=== PATIENT | male | born 1955 | race Caucasian/White ===

== ENCOUNTER 2019-07-07 06:53 | Day surgery (SDC) | payer SELFPAY ==
[~2019-07-07] VITALS: Ht 193 cm; Wt 117.9 kg
--- OUTSIDE RECORDS SUMMARY | ~2019-07-07 | XMS | Encounter Summary ---
Demographics + + + | Address | [address] | | | [place] [address] | + + + | Home Phone | | + + + | Preferred Language | Unknown | + + + | Marital Status | | + + + | Protestant Affiliation | Unknown | + + + | Race | Unknown | + + + | Ethnic Group | Unknown | + + + Author + + + | Author | [facility] | | | and [place] | + + + | Organization | [facility] | | | and [place] | + + + | Address | Unknown | + + + | Phone | Unavailable | + + + Support + + + + + | Name | Relationship | Address | Phone | + + + + + | Alli Keller | ECON | Unknown | | + + + + + | Imelda Keller | ECON | [address] | | | | | [place] [address] | | + + + + + Care Team Providers + +------+ + | Care Outside Sales Representative Insurance Name | Role | Phone | + +------+ + PCP | Unavailable | + +------+ + Encounter Details +--------+ + + + + | Date | Type | Department | Care Team | Description | +--------+ + + + + | 07/15/ | Hospital | [facility] | | | | 2008 | Encounter | [facility] | | | | | | [address] | | | | | | [place] | | | | | | [address] | | | | | | [phone] | | | +--------+ + + + + Social History + +-------+ +--------+------+ | Tobacco Use | Types | Packs/Day | Years | Date | | | | | Used | | + +-------+ +--------+------+ | Never Assessed | | | | | + +-------+ +--------+------+ + + + | Sex Assigned at | Date Recorded | | | | + + + | Not on file | | + + + + + + + | Job Start Date | Occupation | Industry | + + + + | Not on file | Not on file | Not on file | + + + + + + + + | Travel History | Travel Start | Travel End | + + + + + + | No recent travel history available. | + + documented as of this encounter Plan of Treatment Not on filedocumented as of this encounter Visit Diagnoses Not on filedocumented in this encounter"
--- OUTSIDE RECORDS SUMMARY | ~2019-07-07 | XMS | Encounter Summary ---
Demographics + + + | Address | [address] | | | [place] [address] | + + + | Home Phone | | + + + | Preferred Language | Unknown | + + + | Marital Status | | + + + | Jainism Affiliation | Unknown | + + + | Race | Unknown | + + + | Ethnic Group | Unknown | + + + Author + + + | Author | [facility] | | | and [place] | + + + | Organization | [facility] | | | and [...] [address] | | | | | [place] [address] | | + + + + + Care Team Providers + +------+ + | Care Minister Of Religion Name | Role | Phone | + +------+ + | No, Physician | PCP | Unavailable | + +------+ + Reason for Visit Auth/Cert +--------+--------+ + + + + | Status | Reason | Specialty | Diagnoses / | Referred By | Referred To | | | | | Procedures | Contact | Contact | +--------+--------+ + + + + | | | | Diagnoses | | | | | | | Spondylosis | | | | | | | without | | | | | | | myelopathy | | | | | | | or | | | | | | | radiculopath | | | | | | | y, lumbar | | | | | | | region | | | | | | | Flatback | | | | | | | syndrome, | | | | | | | site | | | | | | | unspecified | | | | | | | Low back | | | | | | | pain Back | | | | | | | pain or | | | | | | | radiculopath | | | | | | | y, > 6 wks | | | | | | | | | | | | | | Procedures | | | | | | | LUMBAR SPINE | | | | | | | MRI UNDER | | | | | | | GENERAL | | | | | | | SEDATION | | | +--------+--------+ + + + + Encounter Details +--------+---------+ + + + | Date | Type | Department | Care Team | Description | +--------+---------+ + + + | 02/07/ | Surgery | [facility] | Duy Huerta | LUMBAR SPINE MRI | | 2019 | | [facility] | MD Jose Roberto [address] | UNDER GENERAL | | | | [address] [place] | SEDATION | | | | [place], [place] | [place] [address] | | | | | [address] | [phone] | | | | | [phone] | | | +--------+---------+ + + + Social History + +-------+ +--------+------+ | Tobacco Use | Types | Packs/Day | Years | Date | | | | | Used | | + +-------+ +--------+------+ | Never Smoker | | | | | + +-------+ +--------+------+ + +---+---+---+ | Smokeless Tobacco: | | | | | Never Used | | | | + +---+---+---+ + + +---------+ + | Alcohol Use | Drinks/Week | oz/Week | Comments | + + +---------+ + | Yes | 6 Cans of beer | 6.0 | | + + +---------+ + + + + + | Alcohol Habits | Answer | Date Recorded | + + + + | How often do you have a drink containing | 4 or more times a week | 01/28/2019 | | alcohol? | | | + + + + | How many drinks containing alcohol do you | 1 or 2 | 01/28/2019 | | have on a typical day when you are | | | | drinking? | | | + + + + | How often do you have six or more drinks on | Never | 01/28/2019 | | one occasion? | | | + + + + + + + | Sex Assigned at [...] + + documented as of this encounter Last Filed Vital Signs + + + + + | Vital Sign | Reading | Time Taken | Comments | + + + + + | Blood Pressure | 134/84 | 02/07/2019 11:25 AM | | | | | PST | | + + + + + | Pulse | 76 | 02/07/2019 11:26 AM | | | | | PST | | + + + + + | Temperature | 36.6 C (97.9 F) | 02/07/2019 11:15 AM | | | | | PST | | + + + + + | Respiratory Rate | 16 | 02/07/2019 11:26 AM | | | | | PST | | + + + + + | Oxygen Saturation | 99% | 02/07/2019 11:26 AM | | | | | PST | | + + + + + | Inhaled Oxygen | - | - | | | Concentration | | | | + + + + + | Weight | 117.5 kg (259 lb 0.7 | 02/07/2019 10:02 AM | | | | oz) | PST | | + + + + + | Height | 193 cm (6' 4") | 02/07/2019 10:02 AM | | | | | PST | | + + + + + | Body Mass Index | 31.53 | 02/07/2019 10:02 AM | | | | | PST | | + + + + + documented in this encounter Discharge Instructions Instructions Renetta Estrada RN - 02/07/2019 Recovery After Procedural Sedation (Adult) You have been given medicine by vein to make you sleep during your procedure. This may have included both a pain medicine and sleeping medicine. Most of the effects have worn off. But you may still have some drowsiness for the next 6 to 8 hours. Home care Follow these guidelines when you get home: For the next 8 hours, you should be watched by a responsible adult. This person should m terrie sure your condition is not getting worse. Don't drink any alcoholfor the next [address], operate dangerous machinery,make important business or personal decisions , or sign legal documentsduring the next 24 hours. Note: Your healthcare provider may tell you not to take any medicine by mouth for pain or s leep in the next 4 hours. These medicines may react with the medicines you were given in the hospital. This could cause a much stronger response than usual. Follow-up care Follow up with your healthcare provider if you are not alert and back to your usual level o f activity within 12 hours. When to seek medical advice Call your healthcare provider right away if any of these occur: Drowsiness gets worse Weakness or dizziness gets worse Repeated vomiting You can't be awakened Date Last Reviewed: 12/07/201519990174-5259 [employer]. [address] [place] [address], [place] [id number]. All righ ts reserved. This information is not intended as a substitute for professional medical care. Always follow your healthcare professional's instructions. documented in this encounter Medications at Time of Discharge + + + +---------+ + + | Medication | Sig | Dispensed | Refills | Start | End Date | | | | | | Date | | + + + +---------+ + + | ibuprofen (ADVIL, | Take 1,000 mg by | | 0 | | | | MOTRIN) 200 mg | mouth 4 times daily | | | | | | tablet | as needed for Pain. | | | | | + + + +---------+ + + | gabapentin | Take 1 capsule by | 90 | 1 | 12/10/20 | | | (NEURONTIN) 300 mg | mouth 3 times daily. | capsule | | 19 | 0 | | capsuleIndications: | | | | | | | Lumbar spondylosis, | | | | | | | Flat back syndrome, | | | | | | | Low back pain | | | | | | | potentially | | | | | | | associated with | | | | | | | radiculopathy | | | | | | + + + +---------+ + + documented as of this encounter Plan of Treatment Not on filedocumented as of this encounter Procedures + +--------+ + + + | Procedure Name | Priori | Date/Time | Associated Diagnosis | Comments | | | ty | | | | + +--------+ + + + | MRI LUMBAR SPINE WO | Routin | 02/07/2019 | Lumbar spondylosis | Results for this | | CONTRAST | e | 11:00 AM | Flat back syndrome | procedure are in the | | | | PST | Low back pain | results section. | | | | | potentially | | | | | | associated with | | | | | | radiculopathy | | + +--------+ + + + | DI: MRI | | 02/07/2019 | Back pain or | | | | | 10:34 AM | radiculopathy, > 6 | | | | | PST | wks | | + +--------+ + + + +---+--------+ | | Case | | | Notes | | | H&P | | | 01/28 | | | by | | | Suchar | | | da | +---+--------+ | | | | | Specia | | | l | | | Needs | | | PT | | | CHECKI | | | NG IN | | | @ 1100 | +---+--------+ documented in this encounter Results MRI Lumbar Spine wo Contrast (02/07/2019 11:00 AM PST) + + | Specimen | + + | | + + + + + | Impressions | Performed At | + + + | 1. DEGENERATIVE DISC DISEASE AND PROMINENT LEFT PARAMEDIAN DISC | [facility] | | EXTRUSION AT L4-5 WITH EFFACEMENT OF THE LEFT SUBARTICULAR RECESS, | | | MODERATE OVERALL CENTRAL CANAL STENOSIS AND ENCROACHMENT ON THE | | | DESCENDING LEFT-SIDED NERVE ROOTS. 2. DEGENERATIVE DISC DISEASE | | | AND MILD TO MODERATE FORAMINAL STENOSIS AT L5-S1 WITH ENCROACHMENT ON | | | THE EXITING L5 NERVE ROOTS. 3. DEGENERATIVE DISC DISEASE AND | | | MILD STENOSIS ELSEWHERE IN THE LUMBAR SPINE DETAILED ABOVE. | | | Dictated and Signed by: Qamar Estevez MD Electronically signed: | | | 02/07/2019 12:33 PM | | + + + + + + | Narrative | Performed At | + + + | UNENHANCED MRI LUMBAR SPINE 02/07/2019 10:30 AM CLINICAL | [facility] | | HISTORY: Back pain or radiculopathy, > 6 wks COMPARISON: | | | Radiographs November 05 TECHNIQUE: The following MR | | | sequences of the lumbar spine were obtained: 1. Axial and sagittal | | | T1. 2. Axial, sagittal, and coronal T2. 3. Sagittal STIR. | | | FINDINGS: Five non rib-bearing, lumbar type vertebrae are suggested on | | | the coronal sequence. Marrow signal is normal. Lumbar vertebral | | | height and alignment are maintained without evident fracture, | | | spondylolysis or spondylolisthesis. The conus medullaris is | | | unremarkable, terminating at L1. A circumaortic left renal vein is | | | noted. Imaged intra-abdominal and paraspinal structures are | | | otherwise unremarkable. The T11-12 level is unremarkable on | | | provided sagittal images through the region. T12-L1: No disc | | | pathology or stenosis. L1-2: Disc desiccation, annular tear and | | | mild posterior disc bulge without stenosis. A small right facet | | | joint effusion is present. L2-3: Disc desiccation, annular tears | | | and mild posterior disc bulge combine with facet hypertrophy to | | | minimally narrow the central canal and foramina. There is minimal | | | facet joint fluid. L3-4: Minimal posterior disc bulge and facet | | | hypertrophy without stenosis. Small facet joint effusions are | | | present. L4-5: Disc desiccation, generalized posterior disc bulge | | | and prominent left paramedian disc extrusion, resulting in effacement | | | of the left subarticular recess and moderate narrowing of the | | | central canal overall. There is mass effect on descending | | | left-sided nerve roots. In combination with facet hypertrophy there | | | is mild to moderate bilateral foraminal stenosis. L5-S1: Disc | | | desiccation, moderate to severe disc space narrowing, mild Modic | | | endplate hyperintensity and mild, generalized disc osteophyte complex | | | result in mild to moderate narrowing of the foramina and encroachment | | | on the exiting L5 nerve roots distal to their foramina. There is | | | minimal facet joint fluid. | | + + + + + | Procedure Note | + + | Lalit, Rad Results In - 02/07/2019 12:36 PM PST UNENHANCED MRI LUMBAR SPINE 02/07/2019 | | 10:30 AMCLINICAL HISTORY: Back pain or radiculopathy, > 6 wks COMPARISON: Radiographs | | November 05TECHNIQUE: The following MR sequences of the lumbar spine were | | obtained:1. Axial and sagittal T1.2. Axial, sagittal, and coronal T2.3. Sagittal | | STIR.FINDINGS: Five non rib-bearing, lumbar type vertebrae are suggested on thecoronal | | sequence. Marrow signal is normal. Lumbar vertebral height andalignment are maintained | | without evident fracture, spondylolysis orspondylolisthesis. The conus medullaris is | | unremarkable, terminating at L1. Acircumaortic left renal vein is noted. Imaged | | intra-abdominal and paraspinalstructures are otherwise unremarkable.The T11-12 level is | | unremarkable on provided sagittal images through the region.T12-L1: No disc pathology or | | stenosis.L1-2: Disc desiccation, annular tear and mild posterior disc bulge | | withoutstenosis. A small right facet joint effusion is present.L2-3: Disc desiccation, | | annular tears and mild posterior disc bulge combine withfacet hypertrophy to minimally | | narrow the central canal and foramina. There isminimal facet joint fluid.L3-4: Minimal | | posterior disc bulge and facet hypertrophy without stenosis. Small facet joint effusions | | are present.L4-5: Disc desiccation, generalized posterior disc bulge and prominent | | leftparamedian disc extrusion, resulting in effacement of the left subarticularrecess | | and moderate narrowing of the central canal overall. There is masseffect on descending | | left-sided nerve roots. In combination with facethypertrophy there is mild to moderate | | bilateral foraminal stenosis.L5-S1: Disc desiccation, moderate to severe disc space | | narrowing, mild Modicendplate hyperintensity and mild, generalized disc osteophyte | | complex result inmild to moderate narrowing of the foramina and encroachment on the | | exiting [id number] roots distal to their foramina. There is minimal facet joint | | fluid.IMPRESSION: 1. DEGENERATIVE DISC DISEASE AND PROMINENT LEFT PARAMEDIAN DISC | | EXTRUSION ATL4-5 WITH EFFACEMENT OF THE LEFT SUBARTICULAR RECESS, MODERATE OVERALL | | CENTRALCANAL STENOSIS AND ENCROACHMENT ON THE DESCENDING LEFT-SIDED NERVE ROOTS.2. | | DEGENERATIVE DISC DISEASE AND MILD TO MODERATE FORAMINAL STENOSIS AT L5-S1WITH | | ENCROACHMENT ON THE EXITING L5 NERVE ROOTS.3. DEGENERATIVE DISC DISEASE AND MILD | | STENOSIS ELSEWHERE IN THE LUMBAR SPINE ASDETAILED ABOVE.Dictated and Signed by: Qamar | | MD Herb Electronically signed: 02/07/2019 12:33 PM | |Small facet joint effusions are present. | | | |L4-5: Disc desiccation, generalized posterior disc bulge and prominent left | |paramedian disc extrusion, resulting in effacement of the left subarticular | |recess and moderate narrowing of the central canal overall. There is mass | |effect on descending left-sided nerve roots. In combination with facet | |hypertrophy there is mild to moderate bilateral foraminal stenosis. | | | |L5-S1: Disc desiccation, moderate to severe disc space narrowing, mild Modic | |endplate hyperintensity and mild, generalized disc osteophyte complex result in | |mild to moderate narrowing of the foramina and encroachment on the exiting L5 | |nerve roots distal to their foramina. There is minimal facet joint fluid. | | | |IMPRESSION: | |1. DEGENERATIVE DISC DISEASE AND PROMINENT LEFT PARAMEDIAN DISC EXTRUSION AT | |L4-5 WITH EFFACEMENT OF THE LEFT SUBARTICULAR RECESS, MODERATE OVERALL CENTRAL | |CANAL STENOSIS AND ENCROACHMENT ON THE DESCENDING LEFT-SIDED NERVE ROOTS. | | | |2. DEGENERATIVE DISC DISEASE AND MILD TO MODERATE FORAMINAL STENOSIS AT L5-S1 | |WITH ENCROACHMENT ON THE EXITING L5 NERVE ROOTS. | | | |3. DEGENERATIVE DISC DISEASE AND MILD STENOSIS ELSEWHERE IN THE LUMBAR SPINE | |DETAILED ABOVE. | | | |Dictated and Signed by: Qamar Estevez MD | | Electronically signed: 02/07/2019 12:33 PM | + + + +---------+ + + | Performing | Address | City[facility]State[facility] | Phone Number | | Organization | | | | + +---------+ + + | [facility] | | | | + +---------+ + + documented in this encounter Visit Diagnoses Not on filedocumented in this encounter Administered Medications + +--------+---------+------+------+------+ | Medication Order | MAR | Action | Dose | Rate | Site | | | Action | Date | | | | + +--------+---------+------+------+------+ + +---+ | albuterol 2.5 mg/3 mL nebulizer | | | solution 2.5 mg 2.5 mg, | | | Nebulization, ONCE PRN, Wheezing, | | | Starting Sun02/07/19 at 1024, | | | For 1 dose, RT will administer., | | | Pre-op | | + +---+ | | | + +---+ | albuterol 2.5 mg/3 mL nebulizer | | | solution 2.5 mg 2.5 mg, | | | Nebulization, ONCE PRN, Wheezing, | | | Starting Sun02/07/19 at 1107, | | | For 1 dose, Notify anesthesia if | | | patient is wheezing and does not | | | have a history of asthma or COPD | | | or current smoking., | | | Recovery/Phase I | | + +---+ | | | + +---+ | dextrose 50% injection 12.5-25 | | | g 12.5-25 g, Intravenous, EVERY | | | 15 MIN PRN, Low Blood Sugar, Give | | | 12.5g (25 mL) IV if blood | | | glucose 50-69 mg/dL. Give 25g | | | (50 mL) IV if blood glucose < 50, | | | Starting 02/07/19 at 1024, | | | Repeat in 15 min if blood glucose | | | remains < 70 mg/dL. Repeat | | | blood glucose in 30 min once | | | blood glucose > 70., Pre-op | | + +---+ | | | + +---+ | dextrose 50% injection 12.5-25 | | | g 12.5-25 g, Intravenous, EVERY | | | 15 MIN PRN, Low Blood Sugar, For | | | hypoglycemia. Give 12.5g (25ml) | | | IV if blood glucose 50-69 | | | mg/dL. Give 25g (50ml) IV if | | | blood glucose < 50, Starting Fri | | | 02/07/19 at 1107, Give over 2 | | | min. Repeat in 15 min if blood | | | glucose remains < 70 mg/dL. | | | Repeat blood glucose in 30 min | | | once blood glucose > 70., | | | Recovery/Phase I | | + +---+ | | | + +---+ | ePHEDrine (AKOVAZ) 50 mg/mL | | | injection 5 mg 5 mg, | | | Intravenous, EVERY 5 MIN PRN, if | | | SBP <90., Starting 02/07/19 | | | at 1107, Hold if HR > 100. | | | Maximum total dose 20mg., | | | Recovery/Phase I | | + +---+ | | | + +---+ | fentaNYL (PF) injection 25-50 | | | mcg 25-50 mcg, Intravenous, | | | EVERY 15 MIN PRN, Pain, Give on | | | direction of physician, Starting | | | Sun02/07/19 at 1024, For 4 | | | doses, Max total dose 100 mcg., | | | Pre-op | | + +---+ | | | + +---+ | hydrALAZINE (APRESOLINE) | | | injection 5 mg 5 mg, | | | Intravenous, EVERY 20 MINUTES | | | PRN, For SBP > 180, DBP > 100, | | | Starting Sun02/07/19 at 1107, | | | Hold if HR > 100. Maximum total | | | dose 40 mg. Use labetalol first | | | if available., Recovery/Phase I | | + +---+ | | | + +---+ | labetalol (TRANDATE) 5 mg/mL | | | injection 5 mg 5 mg, | | | Intravenous, EVERY 5 MIN PRN, For | | | SBP > 180, DBP > 100, Starting | | | Sun02/07/19 at 1107, Hold if HR | | | < 60. Maximum total dose 300mg. | | | Notify anesthesia if patient | | | requires more than 50mg., | | | Recovery/Phase I | | + +---+ | | | + +---+ | lactated ringers (LR) infusion | | | at 10-100 mL/hr, Intravenous, | | | CONTINUOUS, Starting Sun02/07/19 | | | at 1045, TKO., Pre-op | | + +---+ | | | + +---+ + +---------+ +--------+-------+---+ | lactated ringers (LR) infusion | New Bag | 02/08/20 | 1,000 | 100 | | | Intravenous, CONTINUOUS PRN, | | 19 10:31 | mLs | mL/hr | | | Starting Sun02/07/19 at 0926, | | AM PST | | | | | Anesthesia Intra-op | | | | | | + +---------+ +--------+-------+---+ + +---+ | | | + +---+ | meperidine (DEMEROL) injection | | | 12.5-25 mg 12.5-25 mg, | | | Intravenous, PRN, Shivering, | | | Starting Sun02/07/19 at 1107, | | | For 2 doses, May Repeat once in 5 | | | min., Recovery/Phase I | | + +---+ | | | + +---+ | midazolam (VERSED) 1 mg/mL | | | injection 1 mg 1 mg, | | | Intravenous, PRN, Anxiety, May | | | repeat Q 5 minutes prn, Starting | | | Sun02/07/19 at 1024, For 2 | | | doses, May repeat once in 5min. | | | Hold anxiolytic until after | | | anesthesia and surgical consent | | | is obtained, Pre-op | | + +---+ | | | + +---+ | ondansetron (ZOFRAN) injection | | | 4 mg 4 mg, Intravenous, ONCE | | | PRN, Nausea, Starting Fri | | | 02/07/19 at 1024, For 1 dose, | | | Pre-op | | + +---+ | | | + +---+ | ondansetron (ZOFRAN) injection | | | 4 mg 4 mg, Intravenous, ONCE | | | PRN, Nausea, Starting Fri | | | 02/07/19 at 1107, For 1 dose, | | | Recovery/Phase I | | + +---+ | | | + +---+ | promethazine (PHENERGAN) (IV | | | ONLY) injection 6.25 mg 6.25 mg, | | | Intravenous, EVERY 15 MIN PRN, | | | Nausea, Vomiting, Starting Fri | | | 02/07/19 at 1107, For 4 doses, | | | TAKE PRECAUTIONS WHEN | | | ADMINISTERING Dilute to 10-20mL | | | with NS. Give over 2-3 minutes | | | into large vein. Use ondansetron | | | first if both are ordered., | | | Recovery/Phase I | | + +---+ | | | + +---+ documented in this encounter
--- OUTSIDE RECORDS SUMMARY | ~2019-07-07 | XMS | Encounter Summary ---
Demographics + + + | Address | [address] | | | [place] [address] | + + + | Home Phone | | + + + | Preferred Language | Unknown | + + + | Marital Status | | + + + | Shinto Affiliation | Unknown | + + + | Race | Unknown | + + + | Ethnic Group | Unknown | + + + Author + + + | Author | [facility] | | | and [place] | + + + | Organization | [facility] | | | [...] | | | | | [place] [address] | | + + + + + Care Team Providers + +------+ + | Care Gasoline Engine Assembler Name | Role | Phone | + +------+ + | No, Physician | PCP | Unavailable | + +------+ + Reason for Visit + + + | Reason | Comments | + + + | Follow-up | MRI Results | + + + | Back Pain | | + + + Evaluate & Treat (Routine) + +--------+ + + + + | Status | Reason | Specialty | Diagnoses / | Referred By | Referred To | | | | | Procedures | Contact | Contact | + +--------+ + + + + | Authorized | | Neurosurgery | Diagnoses | Eric, | [facility] | | | | | Lumbosacral | Mehrdad Olson DC | Neurosurgery | | | | | strain | [address] [facility] | [address] | [address] | | | | [address] | [address] | | | | | | [address] | [place], | | | | | | [place], | [place] [address] | | | | | | [place] | Phone: | | | | | | [address] | [phone] | | | | | | Phone: | Fax: | | | | | | [phone] | [phone] | | | | | | Fax: | | | | | | | [phone] | | + +--------+ + + + + Encounter Details +--------+---------+ + + + | Date | Type | Department | Care Team | Description | +--------+---------+ + + + | 02/26/ | Office | [facility] | Michael Carolina, | Stenosis of lateral | | 2019 | Visit | NEUROSURGERY [address] | PA-C [address] | recess of lumbar | | | | [address] | [address] [place] | spine (Primary Dx); | | | | [place] | [place] [address] | Lumbar spondylosis; | | | | [address] | [phone] | Flat back syndrome; | | | | [phone] | | Low back pain | | | | | | potentially | | | | | | associated with | | | | | | radiculopathy; | | | | | | Lumbar foraminal | | | | | | stenosis | +--------+---------+ + + + Social History + +-------+ +--------+------+ | Tobacco Use | Types | Packs/Day | Years | Date | | | | | Used | | + +-------+ +--------+------+ | Never Smoker | | | | | + +-------+ +--------+------+ + +---+---+---+ | Smokeless Tobacco: | | | | | Never Used | | | | + +---+---+---+ + + + + + | Alcohol Use | Drinks/Week | oz/Week | Comments | + + + + + | Yes | 6-10 Cans of beer | 6.0 - 10.0 | | + + + + + + + + + | Alcohol [...] + + + | Blood Pressure | 172/84 | 02/26/2019 2:16 PM | | | | | PST | | + + + + + | Pulse | 79 | 02/26/2019 2:16 PM | | | | | PST | | + + + + + | Temperature | - | - | | + + + + + | Respiratory Rate | 17 | 02/26/2019 2:16 PM | | | | | PST | | + + + + + | Oxygen Saturation | 97% | 02/26/2019 2:16 PM | | | | | PST | | + + + + + | Inhaled Oxygen | - | - | | | Concentration | | | | + + + + + | Weight | 117.2 kg (258 lb 4.8 | 02/26/2019 2:16 PM | | | | oz) | PST | | + + + + + | Height | 193 cm (6' 4") | 02/26/2019 2:16 PM | | | | | PST | | + + + + + | Body Mass Index | 31.44 | 02/26/2019 2:16 PM | | | | | PST | | + + + + + documented in this encounter Patient Instructions Patient Instructions Sindhu Reynoso Cert MA - 02/26/2019 1:30 PM PST - Before we can proceed with any surgery, you will need to get clearance from a primary car e provider. Please work on establishing care with a provider that can do this evaluation fo r you. Please call our office to schedule an appointment with one of our Neurosurgeon's onc e this has been done. - I would like you to have a Left L4-5 TFESI (injection) with Dr. Wolff. We will send that referral and ask that they call you to schedule the injection. - Let pain be your guide. If you are doing an activity that starts causing you pain back o ff and ease back into it slowly. We don't want you taking any risks that do not need to be taken. documented in this encounter Progress Notes Michael Carolina PA-C - 02/26/2019 1:30 PM PST Michael Carolina PA-C [address] [facility], [address] [place], [place] [address] FAX: [phone] NEUROSURGERY FOLLOW-UP CHIEF COMPLAINT: Chief Complaint Patient presents with Follow-up MRI Results Back Pain HISTORY OF PRESENT ILLNESS: The patient is a 63 y.o. male that presents for a follow up on back and leg symptoms. He was last seen on 01/28/2019 with the complaints of back pain and left leg symptoms that began 4 months ago. It was recommended that he have an MRI of the l umbar spine and return to discuss results. Today he complains of continued left leg pain. He was prescribed gabapentin by me the last time we saw him and says that he increased his Gabapentin from 300mg three times a day to 3 00mg four times a day which seems to help better than the standard instructions I gave him. CURRENT MEDICATIONS: Current Outpatient Medications Medication Sig Dispense Refill gabapentin (NEURONTIN) 300 mg capsule Take 1 capsule by mouth 4 times daily. 120 capsul e 2 ibuprofen (ADVIL, MOTRIN) 200 mg tablet Take 1,000 mg by mouth 4 times daily as needed for Pain. No current facility-administered medications for this visit. ALLERGIES: Allergies Allergen Reactions Penicillins Rash SOCIAL HISTORY: The patient reports that he has never smoked. He has never used smokeless tobacco. He repo rts current alcohol use of about 6.0 - 10.0 standard drinks of alcohol per week. He reports previous drug use. Drug: Marijuana. Review of Systems Eyes: Positive for blurred vision (glasses). Musculoskeletal: Positive for back pain, joint pain (left knee and ankle) and myalgias. Neurological: Positive for tingling (top of left foot). INTERIM PHYSICAL EXAMINATION: Blood pressure 172/84, pulse 79, resp. rate 17, height 1.93 m (6' 4"), weight 117.2 kg (258 lb 4.8 oz), SpO2 97 %. Body mass index is 31.44 kg/m. GENERAL: Rafael Keller is in no acute distress with unlabored respirations. The pa tient does appear comfortable throughout the exam today. HEENT: Head: Normocephalic/atraumatic with no areas of recent trauma. Eyes: Normal sclerae without icterus. Ears: No drainage or tenderness. Nasopharnyx: Clear without drainage. Oropharnyx: Clear without erythema. NECK (ANTERIOR): Supple and without palpable masses. CHEST: Clear to ausculation without crackles or wheeze. HEART: Regular rate and rhythm without murmurs. ABDOMEN: Soft, non-tender, non-distended, and without palpable masses. EXTREMITIES: No cyanosis, clubbing, or edema. Distal pulses are palpable. NEUROLOGICAL EXAM: MENTAL STATUS: The patient is awake, alert, and oriented. He follows simple and complex commands. His speech is fluent, he comprehends speech well, and he repeats well. He has no apparent deficits with short or adjunct faculty for medical terminology memory. CRANIAL NERVES: II: Acuity is intact. Aleman are full to confrontation. III, IV, : The pupils are reactive. Extraocular movements are intact. No ptosis is note d. V: Facial sensation is intact and symmetric. VII: Facial movements are symmetric. VIII: Hearing is intact bilaterally. IX, X: The uvula and palate move appropriately. XI: Shrug is equal bilaterally. XII: Tongue protrusion is midline. MOTOR EXAM: (5 IS NORMAL) * Indicates pain limited Motor exam is normal. Ful 5/5 strength in both lower extremities. SENSORY EXAM: Sensory exam shows diminished sensation to left lateral calf. GAIT: Gait is steady TEST AND RADIOGRAPHIC REVIEW: The patient's imaging was reviewed in detail with the patient today during the visit. The Lumbar MRI from 02/07/2019 shows severe lateral recess stenosis on the left at L4-L5 seconda ry to a very large disc bulge/rupture. Part of this disc rupture appears to have calcificat ions and may be quite old. Lumbar x-rays from 11/05/2018 show significant loss of disc height at L5-S1 with near bone- on-bone articulation.. ASSESSMENT: Encounter Diagnoses Name Primary? 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 The patient has severe left lateral recess stenosis causing L5 radiculopathy in the graciela ing nerve.. We had a lengthy discussion with the patient about his options for care including surgical and non-surgical options. He does not have a current primary care provider so I have recom mended that he get established with one prior to us seeing him and discussing surgery option s with a surgeon. He understands that he needs to have primary care provider clearance prio r to any surgery taking place. I have suggested he get an injection with Dr. Wolff in the meantime to see if that will help alleviate some of his back and leg symptoms. I have s ent a referral for a left L4-[address] Wolff's office. I, Michael Carolina PA-C, personally performed the services described in this documentati on, as scribed by LISA Youssef in my presence, and it is both accurate and complete. Michael Carolina PA-C 02/27/19 ELECTRONICALLY SIGNED BY: Michael Carolina PA-C, 02/27/2019 2:02 PM documented in thi s encounter Plan of Treatment Not on filedocumented as of this encounter Visit Diagnoses + + | Diagnosis | + + | Stenosis of lateral recess of lumbar spine - Primary Spinal stenosis, lumbar region, | | without neurogenic claudication | + + | Lumbar spondylosis Lumbosacral spondylosis without myelopathy | + + | Flat back syndrome Other lordosis (acquired) | + + | Low back pain potentially associated with radiculopathy | + + | Lumbar foraminal stenosis Spinal stenosis, lumbar region, without neurogenic | | claudication | + + documented in this encounter
--- OUTSIDE RECORDS SUMMARY | ~2019-07-07 | XMS | Clinical Summary ---
Demographics + + + | Address | [address] | | | [place] [address] | + + + | Home Phone | | + + + | Preferred Language | Unknown | + + + | Marital Status | | + + + | Mormon Affiliation | Unknown | + + + | Race | Unknown | + + + | Ethnic Group | Unknown | + + + Author + + + | Author | [facility] | | | and [place] | + + + | Organization | [facility] | | | [...] | | | | | [place] [address] | | + + + + + Care Team Providers + +------+ + | Care Barrel Bander Name | Role | Phone | + +------+ + | Ermias Campo | PCP | | + +------+ + Allergies + + + +--------+ + | Active Allergy | Reactions | Severity | Noted | Comments | | | | | Date | | + + + +--------+ + | Penicillins | Rash | Low | | | + + + +--------+ + Medications + + + +---------+------+------+-------+ | Medication | Sig | Dispensed | Refills | Star | End | Statu | | | | | | t | Date | s | | | | | | Date | | | + + + +---------+------+------+-------+ | ibuprofen (ADVIL, | Take 1,000 mg by | | 0 | | | Activ | | MOTRIN) 200 mg | mouth 4 times daily | | | | | e | | tablet | as needed for Pain. | | | | | | + + + +---------+------+------+-------+ | gabapentin | Take 1 capsule by | 120 | 1 | 04/2 | | Activ | | (NEURONTIN) 300 mg | mouth 4 times daily. | capsule | | 9/20 | | e | | capsuleIndications: | | | | 20 | | | | Lumbar spondylosis, | | | | | | | | Flat back syndrome, | | | | | | | | Low back pain | | | | | | | | potentially | | | | | | | | associated with | | | | | | | | radiculopathy | | | | | | | + + + +---------+------+------+-------+ | gabapentin | Take 1 capsule by | 120 | 2 | 01/0 | 04/ | Disco | | (NEURONTIN) 300 mg | mouth 4 times daily. | capsule | | 10/08 | 11/08 | ntinu | | capsuleIndications: | | | | 20 | 20 | ed | | Lumbar spondylosis, | | | | | | (Reor | | Flat back syndrome, | | | | | | marbella) | | Low back pain | | | | | | | | potentially | | | | | | | | associated with | | | | | | | | radiculopathy | | | | | | | + + + +---------+------+------+-------+ Active Problems Not on file Encounters +--------+--------+ + + + | Date | Type | Specialty | Care Team | Description | +--------+--------+ + + + | 06/17/ | Refill | Neurosurgery | Michael Carolina, | Medication Refill | | 2020 | | | PA-C | | +--------+--------+ + + + from Last 3 Months Family History + + +------+ + | Medical History | Relation | Name | Comments | + + +------+ + | No known problems | Father | | | + + +------+ + | No known problems | Maternal | | | | | Grandfath | | | | | er | | | + + +------+ + | No known problems | Maternal | | | | | Grandmoth | | | | | er | | | + + +------+ + | No known problems | Mother | | | + + +------+ + | No known problems | Paternal | | | | | Grandfath | | | | | er | | | + + +------+ + | No known problems | Paternal | | | | | Grandmoth | | | | | er | | | + + +------+ + + +------+--------+ + | Relation | Name | Status | Comments | + +------+--------+ + | Father | | | | + +------+--------+ + | Maternal Grandfather | | | | + +------+--------+ + | Maternal Grandmother | | | | + +------+--------+ + | Mother | | | | + +------+--------+ + | Paternal Grandfather | | | | + +------+--------+ + | Paternal Grandmother | | | | + +------+--------+ + Social History + +-------+ +--------+------+ | [...] recent travel history available. | + + Last Filed Vital Signs + + + + + | Vital Sign | Reading | Time Taken | Comments | + + + + + | Blood Pressure | 199/98 | 03/20/2019 12:38 PM | | | | | PST | | + + + + + | Pulse | 73 | 03/20/2019 12:38 PM | | | | | PST [...] | | + + + + + Plan of Treatment + + + + + | Health Maintenance | Due Date | Last Done | Comments | + + + + + | Hepatitis C | | | | | Screening | 7 | | | + + + + + | Vaccine: | | | | | Dtap/Tdap/Td (1 - | 8 | | | | Tdap) | | | | + + + + + | Colorectal Cancer | | | | | Screening | 7 | | | | (Colonoscopy) | | | | + + + + + | Vaccine: Zoster (1 | | | | | of 2) | 7 | | | + + + + + | Vaccine: Influenza | | | | | (Season Ended) | 0 | | | + + + + + Results Not on filefrom Last 3 Months Insurance + +--------+ +--------+ +---------+------+ | Payer | Benefi | Subscriber | Effect | Phone | Address | Type | | | t Plan | ID | jack | | | | | | / | | Dates | | | | | | Group | | | | | | + +--------+ +--------+ +---------+------+ | [facility] | PHP | [id number] | 02/19/19 | [phone] | | PPO | | PLAN | PERSON | | 20-Pre | 5 | | | | | AL | | sent | | | | | | OPEN | | | | | | | | OPTION | | | | | | + +--------+ +--------+ +---------+------+ + +--------+ +--------+ + + | Guarantor Name | Accoun | Relation to | Date | Phone | Billing Address | | | t Type | Patient | of | | | | | | | | | | + +--------+ +--------+ + + | Rafael Keller | Person | Self | [birth year] | [address] | | [place] | al/Fam | | 1956 | [phone] | [place] [address] | | | kennedy | | | 3 (Home) | | + +--------+ +--------+ + + Advance Directives + + + + + | Type | Date Recorded | Patient | Explanation | | | | Hammer Runner | | + + + + + | Power of | | | | | Waist Pleater | | | | + + + + + | Advance | 02/07/2019 | | | | Directive | 9:57 AM | | | + + + + +
--- OUTSIDE RECORDS SUMMARY | ~2019-07-07 | XMS | Encounter Summary ---
Demographics + + + | Address | [address] | | | [place] [address] | + + + | Home Phone | | + + + | Preferred Language | Unknown | + + + | Marital Status | | + + + | Rastafarian Affiliation | Unknown | + + + | Race | Unknown | + + + | Ethnic Group | Unknown | + + + Author + + + | Author | [facility] | | | and [place] | + + + | Organization | [facility] | | | [...] | | | | | [place] [address] | | + + + + + Care Team Providers + +------+ + | Care Saddle And Harness Maker Name | Role | Phone | + +------+ + | No, Physician | PCP | Unavailable | + +------+ + Reason for Visit +---------+ + | Reason | Comments | +---------+ + | Imaging | MRI with General Sedation | +---------+ + Encounter Details +--------+ + + + + | Date | Type | Department | Care Team | Description | +--------+ + + + + | 02/03/ | Telephone | [facility] [place] | Michael Carolina, | Imaging (MRI with | | 2018 | | NEUROSURGERY [address] | PA-C [address] | General Sedation) | | | | [address] | [address] [place] | | | | | [place], [place] | [place] [address] | | | | | [address] | [phone] | | | | | [phone] | | | +--------+ + + + [...] + + +---------+ + | Yes | | | | + + +---------+ + + [...]
--- OUTSIDE RECORDS SUMMARY | ~2019-07-07 | XMS | Encounter Summary ---
Demographics + + + | Address | [address] | | | [place] [address] | + + + | Home Phone | | + + + | Preferred Language | Unknown | + + + | Marital Status | | + + + | Restoration Affiliation | Unknown | + + + | Race | Unknown | + + + | Ethnic Group | Unknown | + + + Author + + + | Author | [facility] | | | and [place] | + + + | Organization | [facility] | | | [...] Imelda Keller | ECON | [address] [facility] [address] | | | | | [place] [address] | | + + + + + Care Team Providers + +------+ + | Care Parasitology Teacher Name | Role | Phone | + +------+ + | Ermias Campo | PCP | | + +------+ + Reason for Visit Service/Procedure (Routine) +--------+--------+ + + + + | Status | Reason | Specialty | Diagnoses / | Referred By | Referred To | | | | | Procedures | Contact | Contact | +--------+--------+ + + + + | Closed | | Radiology | Diagnoses | | [facility] | | | | | Lumbar | [place], | [address] | | | | | radiculopath | Jose Luis Pisano MD | [place], | | | | | y | [address] | [place] | | | | | Procedures | [place] | [address] | | | | | [place] INJECT | [place], [place] | Phone: | | | | | ANES/STEROID | [address] | [phone] | | | | | FORAMEN | Phone: | Fax: | | | | | LUMBAR/SACRA | [phone] | [phone] | | | | | [address] IMG | Fax: | | | | | | GUIDE ,1 | [phone] | | | | | | LEVEL SD | | | | | | | TRIAMCINOLON | | | | | | | E ACET INJ | | | | | | | NOS, 10 MG | | | | | | | Left L4-L5 | | | | | | | TFESI-Direct | | | | | | | referral | | | | | | | from Michael | | | | | | | Caity, | | | | | | | PA-C | | | +--------+--------+ + + + + Encounter Details +--------+ + + + + | Date | Type | Department | Care Team | Description | +--------+ + + + + | 03/20/ | Hospital | [facility] | Jose Luis Wolff | Lumbar radiculopathy | | 2020 | Encounter | MED CTR XRAY [address] | T, [address] | | | | | [place] | [place] | | | | | [place] [address] | [address] | | | | | [phone] | | | | | | | Rn Transitional, [facility] | | | | | | [place] | | +--------+ + + + + [...] this encounter Last Filed Vital Signs + +---------+ + + | Vital Sign | Reading | Time Taken | Comments | + +---------+ + + | Blood Pressure | 199/98 | 03/20/2019 12:38 PM | | | | | PST | | + +---------+ + + | Pulse | 73 | 03/20/2019 12:38 PM | | | | | PST | | + +---------+ + + | Temperature | - | - | | + +---------+ + + | Respiratory Rate | - | - | | + +---------+ + + | Oxygen Saturation | - | - | | + +---------+ + + | Inhaled Oxygen | - | - | | | Concentration | | | | + +---------+ + + | Weight | - | - | | + +---------+ + + | Height | - | - | | + +---------+ + + | Body Mass Index | - | - | | + +---------+ + + documented in this encounter Medications at Time [...] capsule by | 120 | 2 | 02/26/19 | | | (NEURONTIN) 300 mg | mouth 4 times daily. | capsule | | 20 | 0 | | capsuleIndications: | | [...] | + +--------+ + + + | FL EPIDURAL STEROID | Routin | 03/20/2019 | Lumbar | Results for this | | INJECTION LUMBAR | e | 1:00 PM | radiculopathy | procedure are in the | | TRANSFORAMINAL | | PST | | results section. | + +--------+ + + + documented in this encounter Results FL NAHEED Lumbar Sacral Transforaminal (03/20/2019 1:00 PM PST) + + | Specimen | + + | | + + + + + | Narrative | Performed At | + + + | 03/20/2019 | [facility] | | Transforaminal Epidural Steroid InjectionDiagnosis: Lumbar | | | radiculopathyICD-10 Code M54.16 Rafael Keller presents to the | | | fluoroscopy suite for a fluoroscopically-guided left L4-L5 | | | transforaminal epidural steroid injection as part of conservative | | | management for chronic pain with lumbar radiculopathy and degenerative | | | disc disease. After informed consent was obtained, the patient lay | | | in the prone position on the fluoroscopy table. The area was | | | identified under fluoroscopic guidance. The area was prepped and | | | draped in sterile fashion. A 25-gauge, 1.5-inch needle was inserted | | | into this region and approximately 3 mL of buffered 1% lidocaine was | | | infused. Then, a 22-gauge spinal needle was inserted into the | | | posterior superior transforaminal space and advanced into the epidural | | | space under fluoroscopic guidance. Confirmation into the epidural | | | space was obtained with infusion of approximately 1 mL of Omnipaque | | | contrast which showed epidural flow as well as nerve sheath flow. | | | Then, a combination of 1.5 mL of 1% lidocaine and 1 mL of 10 | | | mg/mL Dexamethasone was infused. The patient tolerated the procedure | | | well without complications. Pre- and post-procedure blood pressures | | | were stable. The patient was given verbal as well as written | | | follow-up instructions. Prior to the start of the procedure, the | | | following were performed and/or verified, including correct patient | | | identity, correct site/side marked and visible, agreement on the | | | procedure to be done, correct patient positioning and an accurate | | | procedure consent form. Any safety precautions based on clinical | | | history and/or medication use have been addressed. I personally | | | performed the procedure above. Estimated blood loss: | | | MinimalComplications: NoneFindings: As expectedAnesthesia: Local | | | 1% Lidocaine | | |addressed. | | |I personally performed the procedure above. | | | | | |Estimated blood loss: Minimal | | |Complications: None | | |Findings: As expected | | |Anesthesia: Local 1% Lidocaine | | | | | + + + + +---------+ + + | Performing | Address | City/State/Zipcode | Phone Number | | Organization | | | | + +---------+ + + | [facility] | | | | + +---------+ + + documented in this encounter Visit Diagnoses + + | Diagnosis | + + | Lumbar radiculopathy Thoracic or lumbosacral neuritis or radiculitis, unspecified | + + documented in this encounter Administered Medications + +--------+ +-------+------+------+ | Medication Order | MAR | Action | Dose | Rate | Site | | | Action | Date | | | | + +--------+ +-------+------+------+ | dexamethasone (PF) 10 mg/mL | Given | 03/20/19 | 10 mg | | | | injection 10 mg 10 mg, Other, | | 20 12:53 | | | | | ONCE, [facility] 03/20/19 at 1245, For 1 | | PM PST | | | | | dose, EPIDURAL When ordered IV | | | | | | | push: Dilute to 10-20 mL with NS | | | | | | | and give slowly over 1-2 | | | | | | | minutes., | | | | | | + +--------+ +-------+------+------+ +---+---+ | | | +---+---+ + +-------+ +-------+---+---+ | iohexol (OMNIPAQUE 300) 300 | Given | 03/20/19 | 3 mLs | | | | mg/mL injection 3 mL 3 mL, | | 20 12:50 | | | | | EPIDURAL, ONCE, [place] 03/20/19 at | | PM PST | | | | | 1245, For 1 dose | | | | | | + +-------+ +-------+---+---+ +---+---+ | | | +---+---+ + +-------+ +-------+---+---+ | lidocaine (PF) 1% injection 2 | Given | 03/20/19 | 2 mLs | | | | mL 2 mL, Other, ONCE, [place] | | 20 12:54 | | | | | 03/20/19 at 1245, For 1 dose | | PM PST | | | | + +-------+ +-------+---+---+ +---+---+ | | | +---+---+ + +-------+ +-------+---+ + | lidocaine buffered 0.9% | Given | 03/20/19 | 3 mLs | | Other | | injection 3 mL 3 mL, | | 20 12:48 | | | (Comment | | Intradermal, ONCE, [facility] 03/20/19 at | | PM PST | | | ) | | 1245, For 1 dose | | | | | | + +-------+ +-------+---+ + +---+---+ | | | +---+---+ documented in this encounter"
--- OUTSIDE RECORDS SUMMARY | ~2019-07-07 | XMS | Encounter Summary ---
Demographics + + + | Address | [address] | | | [place] [address] | + + + | Home Phone | | + + + | Preferred Language | Unknown | + + + | Marital Status | | + + + | Faith Affiliation | Unknown | + + + | Race | Unknown | + + + | Ethnic Group | Unknown | + + + Author + + + | Author | [facility] | | | and [place] | + + + | Organization | [facility] | | | and [...] + + + + + | Imelda Kelelr | ECON | [address] | | | | | [place] [address] | | + + + + + Care Team Providers + +------+ + | Care Physiatrist Name | Role | Phone | + +------+ + | No Physician | PCP | Unavailable | + +------+ + Reason for Visit +--------+ + | Reason | Comments | +--------+ + | Other | Establishing with a PCP per Michael's instructions. Dr Ermias Olivares | | | [place] in [place]. | +--------+ + Encounter Details +--------+ + + + + | Date | Type | Department | Care Team | Description | +--------+ + + + + | 03/13/ | Telephone | [facility] [place] | Michael Carolina, | Other (Establishing | | 2019 | | NEUROSURGERY [address] | PA-C [address] | with a PCP per | | | | [address] | [address] [place] | Michael's | | | | [place], [place] | [place] [address] | instructions. | | | | [address] | [phone] | Ermias Campo in | | | | [phone] | | Michael. ) | +--------+ + + + + Social [...]
--- OUTSIDE RECORDS SUMMARY | ~2019-07-07 | XMS | Clinical Summary ---
Demographics + + + | Address | [address] | | | [place] [address] | + + + | Home Phone | | + + + | Preferred Language | Unknown | + + + | Marital Status | | + + + | Mandaen Affiliation | Unknown | + + + | Race | Unknown | + + + | Ethnic Group | Unknown | + + + Author + + + | Author | [facility] | | | and [place] | + + + | Organization | [facility] | | [...] | | | | | [place] [address] | | + + + + + Care Team Providers + +------+ + | Care Laundry Operator Name | Role | Phone | + [...] | | + +--------+ +--------+ +---------+------+ | [facility] | PHP | [phone] | 02/19/19 | [phone] | | PPO [...] al/Fam | | 1956 | [phone] | [place] [address] | | | kennedy | | | 3 (Home) | | + +--------+ +--------+ + + Advance Directives + + + + + | Type | Date Recorded | Patient | Explanation | | | | Claim Review Medical Director | | + + + + + | Power of | | | | | Director Perioperative | | | | + + + + + | Advance | 02/07/2019 | | | | Directive | 9:57 AM | | | + + + + +
--- OUTSIDE RECORDS SUMMARY | ~2019-07-07 | XMS | Encounter Summary ---
Demographics + + + | Address | [address] | | | [place] [address] | + + + | Home Phone | | + + + | Preferred Language | Unknown | + + + | Marital Status | | + + + | Roman Catholic Affiliation | Unknown | + + + | Race | Unknown | + + + | Ethnic Group | Unknown | + + + Author + + + | Author | [facility] | | | and [place] | + + + | Organization | [facility] | | | and [...] | | | | | [place] [address] | | + + + + + Care Team Providers + +------+ + | Care Brisket Puller Name | Role | Phone | + +------+ + | No, Physician | PCP | Unavailable | + +------+ + Encounter Details +--------+ + + + + | Date | Type | Department | Care Team | Description | +--------+ + + + + | 03/17/ | Orders Only | [facility] [place] | Jose Luis Wolff | Lumbar radiculopathy | | 2020 | | PHYSIATRY [address] | T, MD [address] | (Primary Dx) | | | | [address] | [place] | | | | | [place], [place] | [address] | | | | | [address] | | | | | | [phone] | | | +--------+ + + + [...] Not on filedocumented as of this encounter Results FL NAHEED Lumbar Sacral [...] Diagnosis | + + | Lumbar radiculopathy - Primary Thoracic or lumbosacral neuritis or radiculitis, | | unspecified | + + documented in this encounter"
--- OUTSIDE RECORDS SUMMARY | ~2019-07-07 | XMS | Encounter Summary ---
Demographics + + + | Address | [address] | | | [place] [address] | + + + | Home Phone | | + + + | Preferred Language | Unknown | + + + | Marital Status | | + + + | Spiritism Affiliation | Unknown | + + + | Race | Unknown | + + + | Ethnic Group | Unknown | + + + Author + + + | Author | [facility] | | | and [place] | + + + | Organization | [facility] | | | and [...] | | | | | [place] [address] | | + + + + + Care Team Providers + +------+ + | Care Core Filer Name | Role | Phone | + +------+ + | No, Physician | PCP | Unavailable | + +------+ + Reason for Referral Diagnostic/Screening (Routine) +--------+--------+ + + + + | Status | Reason | Specialty | Diagnoses / | Referred By | Referred To | | | | | Procedures | Contact | Contact | +--------+--------+ + + + + | Closed | | Radiology | Diagnoses | Sucharda, | [facility] | | | | | Lumbar | Michael Izaguirre, | [address] | | | | | spondylosis | PA-C [address] | [place], | | | | | Flat back | [address] | [place] | | | | | syndrome | [address] | [address] | | | | | Low back | [place], | Phone: | | | | | pain | [place] [address] | [phone] | | | | | potentially | Phone: | Fax: | | | | | associated | [phone] | [phone] | | | | | with | Fax: | | | | | | radiculopath | [phone] | | | | | | y | | | | | | | Procedures | | | | | | | MRI Lumbar | | | | | | | Spine wo | | | | | | | Contrast | | | | | | | General | | | | | | | Anesthesia | | | | | | | will contact | | | | | | | patient/ | | | | | | | 02/03/19 | | | +--------+--------+ + + + + Reason for Visit + + + | Reason | Comments | + + + | New Patient | back pain | + + + | Leg Pain | | + + + Evaluate & Treat (Routine) + +--------+ + + + + | Status | Reason | Specialty | Diagnoses / | Referred By | Referred To | | | | | Procedures | Contact | Contact | + +--------+ + + + + | Authorized | | Neurosurgery | Diagnoses | Eric, | [facility] | | | | | Lumbosacral | Mehrdad Olson DC | Neurosurgery | | | | | strain | [address] | [address] | | | | | | [address] | [address] | | | | | | [address] | [place], | | | | | | [place], | [place] [address] | | | | | | [place] | Phone: | | | | | | [address] | [phone] | | | | | | Phone: | Fax: | | | | | | [phone] | [phone] | | | | | | Fax: | | | | | | | [phone] | | + +--------+ + + + + Encounter Details +--------+---------+ + + + | Date | Type | Department | Care Team | Description | +--------+---------+ + + + | 01/28/ | Office | [facility] | Michael Carolina, | Lumbar spondylosis | | 2019 | Visit | NEUROSURGERY [address] | PA-C [address] | (Primary Dx); Flat | | | | [address] | [address] [place] | back syndrome; Low | | | | [place], [place] | [place] [address] | back pain | | | | [address] | [phone] | potentially | | | | [phone] | | associated with | | | | | | radiculopathy | +--------+---------+ + + + Social History [...] + + + | Blood Pressure | 160/100 | 01/28/2019 10:02 AM | | | | | PST | | + + + + + | Pulse | 74 | 01/28/2019 10:02 AM | | | | | PST | | + + + + + | Temperature | - | - | | + + + + + | Respiratory Rate | - | - | | + + + + + | Oxygen Saturation | 96% | 01/28/2019 10:02 AM | | | | | PST | | + + + + + | Inhaled Oxygen | - | - | | | Concentration | | | | + + + + + | Weight | 115.7 kg (255 lb 1.2 | 01/28/2019 10:02 AM | | | | oz) | PST | | + + + + + | Height | 193 cm (6' 4") | 01/28/2019 10:02 AM | | | | | PST | | + + + + + | Body Mass Index | 31.05 | 01/28/2019 10:02 AM | | | | | PST | | + + + + + documented in this encounter Patient Instructions Patient Instructions Sindhu Reynoso Cert MA - 01/28/2019 9:30 AM PST - I would like you to have an MRI of the lumbar spine. Once this is approved by your insur racquel we will call you to get this scheduled. - I would like you to follow-up with me after the MRI to discuss the results. - We like to use surgery as a last resort. We are permanently altering your spine for the rest of your life. - Please work on getting a Primary Care provider who can help track your blood pressure and can follow your health closely. - I have prescribed you some Gabapentin to help with the nerve pain in your left leg. Andrea mcdonnell start out taking this Sunday, Sunday, and Sunday night only. Starting you can take it a noon and at night and then increase to regular dosage as indicated on the prescription. - Please do not take more than 4 tablets of the ibuprofen 200mg at a time and no more than 4 times daily. Ideally you should drink eight 8 ounce glasses of water a day and try to tyler e this medication with food. In addition, on the weekends, when you are less active, it wou ld be good to cut your ibuprofen back to 2 tablets 3 times a day or even less if possible to give your kidneys and stomach a break. - Let pain be your guide. If you are doing an activity that starts causing you pain back o ff and ease back into it slowly. We don't want you taking any risks that do not need to be taken. - If you ever have significant urinary retention, saddle anesthesia, or sudden loss of jason ls or rectal tone you need to get to the emergency room ANABELLA as this is a medical emergency. This is also known as Cauda Equina syndrome. documented in this encounter Progress Notes Michael Carolina PA-C - 01/28/2019 9:30 AM PST Michael Carolina PA-C [address] [facility], [address] [place], [place] [address] FAX: [phone] NEUROSURGERY HISTORY AND PHYSICAL EXAMINATION CHIEF COMPLAINT: Chief Complaint Patient presents with New Patient back pain Leg Pain HISTORY OF PRESENT ILLNESS: The patient is a 63 y.o. male with the complaint of back and l eft leg symptoms that began 4 months ago. He describes the symptoms starting after working in the [employer] back in September. He did not notice the pain until the next day. The back symptoms have been gradually worsening. He rates the back pain as moderate. The back symptoms are daily and continuous. He describes the back pain as numbing, tingling, ac onelia and throbbing. He describes leg symptoms that occur on primarily on the left. The leg symptoms account fo r 50% of his symptoms. The leg symptoms are becoming constant, and the symptoms travel from the back to the lateral leg. He also describes the loss of the ability to walk distances w ithout sitting. He is limited to only walking a couple of blocks on flat even ground before he has to stop because of equal back and leg pain. He describes the pain as sharp and ting ling. He denies neck pain and tingling or numbness in his hands. Patient denies dropping items o n a regular basis. His symptoms improve with changing position, standing, sitting and walking. His symptoms worsen with changing position, standing, sitting and walking. He does not report any change in bowel or bladder function recently. He has tried Chiropractic and NSAIDS. He is not currently taking opiates, muscle relaxer's , and nerve medications. These measures are still helping. He currently works for an [employer]. Patient does not have a primary care doctor and has not seen one for 12 years. His is an RN who has been trying to get him to see a primar care doctor. PAST MEDICAL HISTORY: Past Medical History: Diagnosis Date Aftercare following surgery of the musculoskeletal system PAST SURGICAL HISTORY: Past Surgical History: Procedure Laterality Date KNEE SURGERY Left CURRENT MEDICATIONS: Current Outpatient Medications Medication Sig Dispense Refill gabapentin (NEURONTIN) 300 mg capsule Take 1 capsule by mouth 3 times daily. 90 capsule 1 ibuprofen (ADVIL, MOTRIN) 200 mg tablet Take 1,000 mg by mouth 3 times daily as needed for Pain. No current facility-administered medications for this visit. ALLERGIES: Allergies Allergen Reactions Penicillins Unknown SOCIAL HISTORY: The patient reports that he has never smoked. He has never used smokeless tobacco. He repo rts current alcohol use. He reports that he does not use drugs. FAMILY HISTORY: Family History Problem Relation Age of Onset No known problems Mother No known problems Father No known problems Maternal Grandmother No known problems Maternal Grandfather No known problems Paternal Grandmother No known problems Paternal Grandfather Review of Systems Musculoskeletal: Positive for back pain. Neurological: Positive for tingling. Left leg and foot PHYSICAL EXAMINATION: Blood pressure (!) 160/100, pulse 74, height 1.93 m (6' 4"), weight 115.7 kg (255 lb 1.2 oz ), SpO2 96 %. Body mass index is 31.05 kg/m. GENERAL: Rafael Keller is in no acute distress with unlabored respirations. He lyles s appear mildly uncomfortable throughout the exam today. Patient is observed with his leg o ut straight and unweighting his left buttock. HEENT: Head: Normocephalic/atraumatic with no areas of recent trauma. Eyes: Normal sclerae without icterus. Ears: No drainage or tenderness. Nasopharynx: Clear without drainage. Oropharynx: Clear without erythema. NECK (ANTERIOR): Supple and without palpable masses. CHEST: Clear to ausculation without crackles or wheeze. HEART: Regular rate and rhythm without murmurs. ABDOMEN: Soft, non-tender, non-distended, and without palpable masses. SPINE: The lumbar spine shows there is moderate tenderness in the midline of the lumbar spine at L 5-S1. To palpation, there is moderate left myofascial tenderness. There is no significant pain to provocative testing of the SI joint. There is no major deformity noted. EXTREMITIES: No cyanosis, clubbing, or edema. Distal pulses are palpable. NEUROLOGICAL EXAM: MENTAL STATUS: The patient is awake, alert, and oriented. He follows simple and complex commands. His speech is fluent, he comprehends speech well, and he repeats well. He has no apparent deficits with short or linux admin memory. CRANIAL NERVES: II: Acuity is intact. [...] (5 IS NORMAL) * Indicates pain limited MUSCLE/ MOVEMENT: RIGHT LEFT Median Intrinsics 5 5 Ulnar Intrinsics 5 5 Irrigating Pump Operator Strength 5 5 Hip Flexion 5 5 Hip Extension 5 5 Knee Flexion 5 5 Knee Extension 5 5 Dorsiflexion 5 5 Extensor Hallicus Longus 5 5 Plantarflexion 5 5 SENSORY EXAM: Sensory exam shows no diminished sensation to light touch or pain throughout the upper and lower extremities. REFLEXES: (2 OR 2+ IS NORMAL) REFLEX: RIGHT LEFT BICEPS ABSENT 2+ BRACHIORADIALIS 1+ ABSENT TRICEPS 2+ 2+ PATELLAR 2+ 2+ ACHILLES 2+ ABSENT GAIT: Gait is steady PERIPHERAL NERVE/MISC: Tinel is negative at the wrists and elbows bilaterally. Phalen is negative. Straight leg raise is negative bilaterally. See below Duy's test of the hips is negative bilaterally. * Straight leg raise causes significant raise in back pain but does not provoke typical sci atic pain. TEST AND RADIOGRAPHIC REVIEW: Patient has no advanced imaging at today's visit. He states that from a pain standpoint he would not be able to lay still on an MRI table. Furthermore, patient reports severe claust rophobia and could not go headfirst into the tube. Lumbar x-rays from 11/05/2018 shows L5-S1 Spondylosis with near bone on bone articulation. ASSESSMENT: NEUROSURGICAL DIAGNOSES: Encounter Diagnoses Name Primary? Lumbar spondylosis Yes Flat back syndrome Low back pain potentially associated with radiculopathy GENERAL DIAGNOSES: Past Medical History: Diagnosis Date Aftercare following surgery of the musculoskeletal system PLAN: Rafael Ryland Keller presented today, and it was a pleasure seeing this patient and assess ing his neurologic problems. The patient has significant L5-S1 spondylosis with near pluc-ao-peai articulation. The L5 pattern of radiculopathy is likely associated with foraminal stenosis as a result of this. I am ordering an MRI so that I can evaluate the degree of stenosis that is present. Results of this will be used to direct future conservative treatment options as well as surgery if this ends up being necessary. I had a lengthy discussion with him about his options for care including surgical and non-s urgical options. For now, I would strongly recommend trying to use surgery as a last resort . It is my suspicion that we will likely end up ordering an L5-S1 epidural steroid injectio n on the left. However, we will obviously wait until the MRI is done before ordering this. In discussing the surgical options for the back, we discussed options for a lumbar fusion p otentially in the future after more conservative treatment's have been tried. He understands that in most instances the recovery from surgery can be lengthy and sometime s difficult. He was encouraged strongly to establish care with a primary care provider to help manage hi s high blood pressure and other preventative care. He would like to obtain the additional recommended imaging and return to re-discuss the fin dings and options for care. I would like this patient to follow up with me in 2-3 weeks to discuss MRI results. I, Michael Carolina PA-C, personally performed the services described in this documentati on, as scribed by LISA Youssef in my presence, and it is both accurate and complete. 3 Michael Carolina PA-C 01/28/19 ELECTRONICALLY SIGNED BY: Michael Carolina PA-C, 01/28/2019 11:00 AM documented in thi s encounter Plan of Treatment Not on filedocumented as of this encounter Results MRI Lumbar Spine wo [...] and encroachment on the | | exiting [id number] roots distal to their foramina. There is [...] | Diagnosis | + + | Lumbar spondylosis - Primary Lumbosacral spondylosis without myelopathy | + + | Flat back syndrome Other lordosis (acquired) | + + | Low back pain potentially associated with radiculopathy | + + documented in this encounter
--- OUTSIDE RECORDS SUMMARY | ~2019-07-07 | XMS | Encounter Summary ---
Demographics + + + | Address | [address] | | | [place] [address] | + + + | Home Phone | | + + + | Preferred Language | Unknown | + + + | Marital Status | | + + + | Yazidi Affiliation | Unknown | + + + | Race | Unknown | + + + | Ethnic Group | Unknown | + + + Author + + + | Author | [facility] | | | and [place] | + + + | Organization | [facility] | | | [...] [place] | ECON | [address] | | | | | [place] [address] | | + + + + + Care Team Providers + +------+ + | Care Straight Cutter Machine Name | Role | Phone | + [...] | Telephone | [facility] [place] | Michael Carolnia, | Imaging (MRI with | | 2018 | | NEUROSURGERY [address] | PA-C [address] | General Sedation) | | | | [address] | [address] [place] | | | | | [place], [place] | [place] [address] | | | | | [address] | [phone] | | | | | [phone] | | | +--------+ + + + [...]
--- OUTSIDE RECORDS SUMMARY | ~2019-07-07 | XMS | Encounter Summary ---
Demographics + + + | Address | [address] | | | [place] [address] | + + + | Home Phone | | + + + | Preferred Language | Unknown | + + + | Marital Status | | + + + | Spiritism Affiliation | Unknown | + + + | Race | Unknown | + + + | Ethnic Group | Unknown | + + + Author + + + | Author | [facility] | | | and [place] | + + + | Organization | [facility] | | | [...] | | | | | [place] [address] | | + + + + + Care Team Providers + +------+ + | Care Legal Recruiter Name | Role | Phone | + +------+ + | No, Physician | PCP | Unavailable | + +------+ + Encounter Details +--------+ + + + + | Date | Type | Department | Care Team | Description | +--------+ + + + + | 01/27/ | Abstract | [facility] [place] | Myra, | | | 2019 | | NEUROSURGERY [address] | [address] | | | | | [address] | [address] | | | | | [place], [place] | [place] [address] | | | | | [address] | | | | | | [phone] | | | +--------+ + + + [...]
--- OUTSIDE RECORDS SUMMARY | ~2019-07-07 | XMS | Encounter Summary ---
Demographics + + + | Address | [address] | | | [place] [address] | + + + | Home Phone | | + + + | Preferred Language | Unknown | + + + | Marital Status | | + + + | Anglican Affiliation | Unknown | + + + | Race | Unknown | + + + | Ethnic Group | Unknown | + + + Author + + + | Author | [facility] | | | and [place] | + + + | Organization | [facility] | | | [...] | | | | | [place] [address] | | + + + + + Care Team Providers + +------+ + | Care Ore Miner Name | Role | Phone | + +------+ + | No, Physician | PCP | Unavailable | + +------+ + Encounter Details +--------+ + + + + | Date | Type | Department | Care Team | Description | +--------+ + + + + | 01/23/ | Documentati | [facility] [place] | Boybrittanicky Michael Izaguirre, | | | 2018 | on | NEUROSURGERY [address] | PA-C [address] | | | | | [address] | [address] [place] | | | | | [place], [place] | [place] [address] | | | | | [address] | [phone] | | | | | [phone] | | | +--------+ + + + [...] + + documented as of this encounter Progress Notes Sindhu Reynoso Cert MA - 01/23/2019 9:23 AM PSTPatient states he is not taking pain medica tions. Opioid Risk Tool (ORT): Total Score 0 (01/28/19 1021) (0 to 3 = Low risk: 6% chance of developing problematic behaviors, 4 to 7 = Moderate risk: 28% chance of developing problematic behaviors, 8 or more = High risk: 90% chance of develop ing problematic behaviors.) PEG Pain screening tool (Pain, enjoyment, general activity) Total score: 7.33 ( 9 1020) PHQ9 Depression scale: Date of Last Screening Total Score 6 (01/28/19 1020) (1-4 = Minimal depression, 5-9 = Mild depression, 10-14 = Moderate depression, 15-19 = Mode rately severe depression, 20-27 = Severe depression) General Anxiety Disorder (GUSTAVO-7): Total Score 6 (01/28/19 1012) (8-9 = consistent with Generalized anxiety disorder, >15 = severe) [facility] AIRLINE RADIO OPERATOR was checked on 01/23/19 and no medications have been dispensed in the last 3 months. documented in this encounter Plan of Treatment Not on filedocumented as of this encounter Visit Diagnoses Not on filedocumented in this encounter"
--- OUTSIDE RECORDS SUMMARY | ~2019-07-07 | XMS | Encounter Summary ---
Demographics + + + | Address | [address] | | | [place] [address] | + + + | Home Phone | | + + + | Preferred Language | Unknown | + + + | Marital Status | | + + + | Religion Affiliation | Unknown | + + + | Race | Unknown | + + + | Ethnic Group | Unknown | + + + Author + + + | Author | [facility] | | | and [place] | + + + | Organization | [facility] | | | [...] | | | | | [place] [address] | | + + + + + Care Team Providers + +------+ + | Care Mechanical Process Engineer Name | Role | Phone | + [...] | | | | | [place], [place] | [place] [address] | | | | | [address] | | | | | | [phone] | | | +--------+ + + + [...]
--- OUTSIDE RECORDS SUMMARY | ~2019-07-07 | XMS | Encounter Summary ---
Demographics + + + | Address | [address] | | | [place] [address] | + + + | Home Phone | | + + + | Preferred Language | Unknown | + + + | Marital Status | | + + + | Taoism Affiliation | Unknown | + + + | Race | Unknown | + + + | Ethnic Group | Unknown | + + + Author + + + | Author | [facility] | | | and [place] | + + + | Organization | [facility] | | | and [...] | | | | | [place] [address] | | + + + + + Care Team Providers + +------+ + | Care Training Project Manager Name | Role | Phone | + [...] | | | [place], [place] | [address] | | | | | [address] | | | | | | [phone] | | | +--------+ + + + [...]
--- OUTSIDE RECORDS SUMMARY | ~2019-07-07 | XMS | Encounter Summary ---
Demographics + + + | Address | [address] | | | [place] [address] | + + + | Home Phone | | + + + | Preferred Language | Unknown | + + + | Marital Status | | + + + | Uatsdin Affiliation | Unknown | + + + | Race | Unknown | + + + | Ethnic Group | Unknown | + + + Author + + + | Author | [facility] | | | and [place] | + + + | Organization | [facility] | | | [...] | | | | | [place] [address] | | + + + + + Care Team Providers + +------+ + | Care Card Doffer Name | Role | Phone | + +------+ + | No, Physician | PCP | Unavailable | + +------+ + Encounter Details +--------+ + + + + | Date | Type | Department | Care Team | Description | +--------+ + + + + | 01/20/ | Imaging | [facility] | Provider, | | | 2019 | Exam | [facility] EXTERNAL | MD Clem [address] | | | | | IMAGING [address] | [address] | | | | | [address] [place] | [place] [address] | | | | | [place] [address] | | | | | | [phone] | | | +--------+ + + + [...] | + +--------+ + + + | XR LUMBAR SPINE 2 OR | Routin | 11/05/2018 | | Results for this | | 3 VW | e | 12:00 AM | | procedure are in the | | | | PDT | | results section. | + +--------+ + + + documented in this encounter Results XR Lumbar Spine 2 or 3 Vw (11/05/2018 12:00 AM PDT) + + | Specimen | + + | | + + + + + | Narrative | Performed At | + + + | External films for comparison only | [facility] | | | | | No results will be in the chart. | | + + + + +---------+ + + | Performing | Address | City/State/Zipcode | Phone Number | | Organization | | | | + +---------+ + + | [facility] | | | | + +---------+ + + documented in this encounter Visit Diagnoses Not on filedocumented in this encounter"
--- OUTSIDE RECORDS SUMMARY | ~2019-07-07 | XMS | Encounter Summary ---
Demographics + + + | Address | [address] | | | [place] [address] | + + + | Home Phone | | + + + | Preferred Language | Unknown | + + + | Marital Status | | + + + | Hindu Affiliation | Unknown | + + + | Race | Unknown | + + + | Ethnic Group | Unknown | + + + Author + + + | Author | [facility] | | | and [place] | + + + | Organization | [facility] | | | and [...] | | | | | [place] [address] | | + + + + + Care Team Providers + +------+ + | Care Fuel House Attendant Name | Role | Phone | + [...] GENERAL | | | | [address] | [address] [place] | SEDATION | | | | [place], [place] | [place] [address] | | | | | [address] | [phone] | | | | | [phone] | | | +--------+---------+ + + + [...] You can't be awakened Date Last Reviewed: 12/07/201519996893-5210 [employer]. [address] [place] [address], [place] [id number]. All righ ts reserved. This information is [...] and encroachment on the | | exiting C0zovpn roots distal to their foramina. There is [...] + + | Performing | Address | City/State/[facility] | Phone Number | | Organization | [...]
--- OUTSIDE RECORDS SUMMARY | ~2019-07-07 | XMS | Encounter Summary ---
Demographics + + + | Address | [address] | | | [place] [address] | + + + | Home Phone | | + + + | Preferred Language | Unknown | + + + | Marital Status | | + + + | Mosque Affiliation | Unknown | + + + | Race | Unknown | + + + | Ethnic Group | Unknown | + + + Author + + + | Author | [facility] | | | and [place] | + + + | Organization | [facility] | | | [...] | | | | | [place] [address] | | + + + + + Care Team Providers + +------+ + | Care Agriculture Engineer Name | Role | Phone | [...] | | | strain | [address] [facility] | [address] | | | | | [address] | [address] | | | | | | [address] | [place], | | | | | | [place], | [place] [address] | | | | | | [place] | Phone: | | | | | | [address] | [phone] | | | | | | Phone: | Fax: | | | | | | [phone] | [phone] | | | | | | Fax: | | | | | | | [phone] | | + +--------+ + + + + Encounter Details +--------+---------+ + + + | Date | Type | Department | Care Team | Description | +--------+---------+ + + + | 02/26/ | Office | [facility] | Michael Carolina, | 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 CRANIAL NERVES: II: Acuity is intact. [...]
--- OUTSIDE RECORDS SUMMARY | ~2019-07-07 | XMS | Encounter Summary ---
Demographics + + + | Address | [address] | | | [place] [address] | + + + | Home Phone | | + + + | Preferred Language | Unknown | + + + | Marital Status | | + + + | Alevism Affiliation | Unknown | + + + | Race | Unknown | + + + | Ethnic Group | Unknown | + + + Author + + + | Author | [facility] | | | and [place] | + + + | Organization | [facility] | | [...] | | | | | [place] [address] | | + + + + + Care Team Providers + +------+ + | Care Scale Technician Name | Role | Phone | + [...] [address] [place] | | | | | [place], [place] | [place] [address] | | | | | [address] | [phone] | | | | | [phone] | | | +--------+ + + + [...] with Generalized anxiety disorder, >15 = severe) [facility] TALENT MANAGER was checked on 01/23/19 and no medications have been dispensed in the last 3 months. documented in this encounter Plan of Treatment Not on filedocumented as of this encounter Visit Diagnoses Not on filedocumented in this encounter"
--- OUTSIDE RECORDS SUMMARY | ~2019-07-07 | XMS | Encounter Summary ---
Demographics + + + | Address | [address] | | | [place] [address] | + + + | Home Phone | | + + + | Preferred Language | Unknown | + + + | Marital Status | | + + + | Taoist Affiliation | Unknown | + + + | Race | Unknown | + + + | Ethnic Group | Unknown | + + + Author + + + | Author | [facility] | | | and [place] | + + + | Organization | [facility] | | | and [...] | | | | | [place] [address] | | + + + + + Care Team Providers + +------+ + | Care Cook Boat Name | Role | Phone | + [...] Lumbar | Michael Izaguirre, | [address] | | | | | spondylosis | PA-C [address] | [place], | | | | | Flat back | [address] | [place] | | | | | syndrome | [address] | [address] | | | | | Low back | [place], | Phone: | | | | | pain | [place] [address] | [phone] | | | | | potentially | Phone: | Fax: | | | | | associated | [phone] | [phone] | | | | | with | Fax: | | | | | | radiculopath | [phone] | | | | | | y [...] + + + + Reason for Visit Auth/Cert +--------+--------+ + [...] | +--------+ + + + + | 02/07/ | Hospital | [facility] | Duy Huerta | Lumbar spondylosis; | | 2019 | Encounter | MED CTR IR INTRA OP | MD Jose Roberto [address] | Flat back syndrome; | | | | [address] | [address] [place] | Low back pain | | | | [place], [place] | [place] [address] | potentially | | | | [address] | [phone] | associated with | | | | [phone] | | radiculopathy | +--------+ + + + + Social [...] You can't be awakened Date Last Reviewed: 12/07/201519997795-2594 [employer]. [address] [place] [address], [place] [address]. All righ ts reserved. This information is [...] capsule by | 90 | 1 | 01/29/20 | | | (NEURONTIN) 300 mg | [...] and encroachment on the | | exiting A4ujube roots distal to their foramina. There is [...] Diagnosis | + + | Lumbar spondylosis Lumbosacral spondylosis without myelopathy | + + | Flat back syndrome Other lordosis (acquired) | + + | Low back pain potentially associated with radiculopathy | + + documented in this encounter Administered Medications + +--------+---------+------+------+------+ [...] if | | | SBP <90., Starting Sun02/07/19 | | | at 1107, Hold if [...] Intravenous, PRN, Shivering, | | | Starting 02/07/19 at 1107, | | | For 2 doses, May Repeat once in 5 | | | min., Recovery/Phase I | | + +---+ | | | + +---+ | midazolam (VERSED) 1 mg/mL | | | injection 1 mg 1 mg, | | | Intravenous, PRN, Anxiety, May | | | repeat Q 5 minutes prn, Starting | | | 02/07/19 at 1024, For 2 | | | [...]
--- OUTSIDE RECORDS SUMMARY | ~2019-07-07 | XMS | Encounter Summary ---
Demographics + + + | Address | [address] | | | [place] [address] | + + + | Home Phone | | + + + | Preferred Language | Unknown | + + + | Marital Status | | + + + | Restorationism Affiliation | Unknown | + + + | Race | Unknown | + + + | Ethnic Group | Unknown | + + + Author + + + | Author | [facility] | | | and [place] | + + + | Organization | [facility] | | | and [...] | | | | | [place] [address] | | + + + + + Care Team Providers + +------+ + | Care Radiology Technologist Name | Role | Phone | + [...] + + + + | 02/07/ | Anesthesia | [facility] | Jens Baker | | | 2019 | Event | MED CTR IR INTRA OP | MD Marshall [address] | | | | | [address] | [place] | | | | | [place] | [address] | | | | | [address] | | | | | | [phone] | | | +--------+ + + + + Anesthesia Record + + + + + | Procedure Name | Responsible | Anesthesia Start | Anesthesia Stop Time | | | Anesthesiologist | Time | | + + + + + | LUMBAR SPINE MRI | Jens Baker, | 02/07/19 1033 | 02/07/19 1120 | | UNDER GENERAL | | | | | SEDATION (N/A Spine | | | | | Lumbar) | | | | + + + + + +----+---+ + + | Da | T | Event | Comment | | te | i | | | | | m | | | | | e | | | +----+---+ + + | 12 | 1 | | | | /2 | 0 | | | | 0/ | 0 | | | | 20 | 1 | | | | 19 | | | | +----+---+ + + | | 1 | An Checkout | Pre-use anesthesia machine/equipment checkout. | | | 0 | | | | | 0 | | | | | 1 | | | +----+---+ + + | | 1 | An Start | Reassessment prior to anesthesia induction/procedure. | | | 0 | | | | | 3 | | | | | 3 | | | +----+---+ + + | | 1 | Preoxygenat | | | | 0 | ed | | | | 3 | | | | | 6 | | | +----+---+ + + | | 1 | An | | | | 0 | Induction | | | | 3 | | | | | 9 | | | +----+---+ + + | | 1 | An | | | | 0 | Intubation | | | | 4 | | | | | 0 | | | +----+---+ + + | | 1 | AN Bite | | | | 0 | Block | | | | 4 | | | | | 2 | | | +----+---+ + + | | 1 | Breathing | | | | 0 | Spontaneous | | | | 4 | ly | | | | 4 | | | +----+---+ + + | | 1 | First | | | | 0 | Inc/Proc St | | | | 4 | | | | | 5 | | | +----+---+ + + | | 1 | Extubation/ | | | | 1 | Airway LDA | | | | 1 | Removal | | | | 4 | | | +----+---+ + + | | 1 | An Stop | Patient handed off to recovery nurse. | | | 2 | | | | | 0 | | | +----+---+ + + +------+ | Meds | +------+ + +--------+ | Name | Total | + +--------+ | lidocaine 2% (PF) | 60 mg | + +--------+ | propofol (DIPRIVAN) injection | 200 mg | | (bolus) (20 mL) | | + +--------+ | dexamethasone | 10 mg | + +--------+ | ondansetron | 4 mg | + +--------+ | LR (Infusion) | 400 mL | + +--------+ +---------+ | Name | +---------+ | Insp O2 | +---------+ | Exp SEV | +---------+ + + | No blood administrations on file. | + + +--------+ + + + | Type | Details | Placement | Removal | +--------+ + + + | Periph | 02/07/19; 1030; Right (Melania | 02/07/19 1030 by | 02/07/19 1134 by | | taya | MACHELLE); Hand; [id number] | Stormy Keita RN | Renetta Estrada, | | IV | catheter system; 20 gauge, 1 02/22 | | CHARITY FUNDRAISER | | | in length; intradermal injection, | | | | | tolerated well; no longer | | | | | indicated, catheter/device | | | | | intact; short term use; 02/07/19; | | | | | 1134 | | | +--------+ + + + | Airway | Placement Date: 02/07/19; | 02/07/19 1040 by | 02/07/19 1114 by | | | Placement Time: 1040 (created via | Jens Baker, | Jens Baker, | | | procedure documentation); Mask | MD | MD | | | Ventilation: EZ; Attempts: 1; | | | | | Airway Type: laryngeal mask; | | | | | Size: 5; Trauma: none; Placement | | | | | Check: exhaled CO2 detection | | | | | device, bilateral chest rise, | | | | | breath sounds equal bilaterally; | | | | | Removal Date: 02/07/19; Removal | | | | | Time: 1114; Additional Comments: | | | | | Smooth IV induction. LMA placed | | | | | and well seated. Secured in | | | | | place. Breathing Circuit attached | | | | | to LMA. BSEB/ETCO2 | | | | | (auscultation and capnography) | | | | | and placement confirmed. | | | +--------+ + + + documented in this encounter Social History + +-------+ +--------+------+ | Tobacco [...] | + +--------+ + + + | ANE AIRWAY NOTE | Routin | 02/07/2019 | | Results for this | | | e | 10:45 AM | | procedure are in the | | | | PST | | results section. | + +--------+ + + + documented in this encounter Results Airway (02/07/2019 10:45 AM PST) + + + | Narrative | Performed At | + + + | Jens Baker MD 02/07/2019 10:45 AM Anesthesia Airway | | | Placement 02/07/2019 10:40 AM Preprocedure check: patient | | | identified, oxygen, airway assessed, patient reassessment prior to | | | induction, airway equipment checked and suction Rapid Sequence | | | Induction: no Mask ventilation: easy Attempts: 1 Airway type: | | | laryngeal mask Size: 5 Cuffed: cuffed Route, reference point: | | | center of mouth Tube secured with: adhesive tape Trauma: none Tube | | | placement verification: carbon dioxide detection, equal bilateral | | | breath sounds and bilateral chest rise Performing provider: Jens Olivares | | | MD Samuel Authorizing provider: Jens Baker MD | | | Comments: Smooth IV induction. LMA placed and well seated. Secured | | | in place. Breathing Circuit attached to LMA. BSEB/ETCO2 | | | (auscultation and capnography) and placement confirmed. Please | | | see intraoperative grid for any additional medication documentation. | | + + + documented in this encounter Visit Diagnoses Not on filedocumented in this encounter Administered Medications + +--------+ +-------+------+------+ | Medication Order | MAR | Action | Dose | Rate | Site | | | Action | Date | | | | + +--------+ +-------+------+------+ | dexamethasone (PF) 10 mg/mL | Given | 02/08/20 | 10 mg | | | | injection Intravenous, PRN, | | 19 10:45 | | | | | Starting 02/07/19 at 1045, | | AM PST | | | | | Anesthesia Intra-op | | | | | | + +--------+ +-------+------+------+ +---+---+ | | | +---+---+ + +-------+ +-------+---+---+ | lidocaine (PF) 2% injection | Given | 02/08/20 | 60 mg | | | | PRN, Starting Sun02/07/19 at | | 19 10:39 | | | | | 1039, Anesthesia Intra-op | | AM PST | | | | + +-------+ +-------+---+---+ +---+---+ | | | +---+---+ + +-------+ +------+---+---+ | ondansetron (ZOFRAN) injection | Given | 02/08/20 | 4 mg | | | | PRN, Starting Sun02/07/19 at | | 19 10:39 | | | | | 1039, Anesthesia Intra-op | | AM PST | | | | + +-------+ +------+---+---+ +---+---+ | | | +---+---+ + +-------+ +--------+---+---+ | propofol (DIPRIVAN) injection | Given | 02/08/20 | 200 mg | | | | PRN, Starting 02/07/19 at | | 19 10:39 | | | | | 1039, Anesthesia Intra-op | | AM PST | | | | + +-------+ +--------+---+---+ +---+---+ | | | +---+---+ documented in this encounter"
--- OUTSIDE RECORDS SUMMARY | ~2019-07-07 | XMS | Encounter Summary ---
Demographics + + + | Address | [address] | | | [place] [address] | + + + | Home Phone | | + + + | Preferred Language | Unknown | + + + | Marital Status | | + + + | Jew Affiliation | Unknown | + + + | Race | Unknown | + + + | Ethnic Group | Unknown | + + + Author + + + | Author | [facility] | | | and [place] | + + + | Organization | [facility] | | [...] | | | | | [place] [address] | | + + + + + Care Team Providers + +------+ + | Care Commercial Art Instructor Name | Role | Phone | + [...] | | | | | [address] | | | | | | [place] | | | | | | [address] | | | | | | [phone] | | | +--------+ + + + [...]
--- OUTSIDE RECORDS SUMMARY | ~2019-07-07 | XMS | Encounter Summary ---
Demographics + + + | Address | [address] | | | [place] [address] | + + + | Home Phone | | + + + | Preferred Language | Unknown | + + + | Marital Status | | + + + | Mu-Ism Affiliation | Unknown | + + + | Race | Unknown | + + + | Ethnic Group | Unknown | + + + Author + + + | Author | [facility] | | | and [place] | + + + | Organization | [facility] | | | [...] | | | | | [place] [address] | | + + + + + Care Team Providers + +------+ + | Care Supervisor Esters And Emulsifiers Name | Role | Phone | + [...] Lumbar | Michael Izaguirre, | [address] | | | | | spondylosis | PA-C [address] | [place], | | | | | Flat back | [address] | [place] | | | | | syndrome | [address] | [address] | | | | | Low back | [place], | Phone: | | | | | pain | [place] [address] | [phone] | | | | | potentially | Phone: | Fax: | | | | | associated | [phone] | [phone] | | | | | with | Fax: | | | | | | radiculopath | [phone] | | | | | | y [...] Neurosurgery | Diagnoses | Eric, | [facility] | | | | | Lumbosacral | Mehrdad Olson DC | Neurosurgery | | | | | strain | [address] | [address] | | | | | | [address] | [address] | | | | | | [address] | [place], | | | | | | [place], | [place] [address] | | | | | | [place] | Phone: | | | | | | [address] | [phone] | | | | | | Phone: | Fax: | | | | | | [phone] | [phone] | | | | | | Fax: | | | | | | | [phone] | | + +--------+ + + + + Encounter Details +--------+---------+ + + + | Date | Type | Department | Care Team | Description | +--------+---------+ + + + | 01/28/ | Office | [facility] | Michael Carolina, | Lumbar spondylosis | | 2019 | Visit | NEUROSURGERY [address] | PA-C [address] | (Primary Dx); Flat | | | | [address] | [address] [place] | back syndrome; Low | | | | [place], [place] | [place] [address] | back pain | | | | [address] | [phone] | potentially | | | | [phone] | | associated with | | | [...] 9:30 AM PST Michael [place] PA-C [address] [facility] [place] [place], [place] [address] FAX: [phone] NEUROSURGERY HISTORY AND PHYSICAL EXAMINATION CHIEF COMPLAINT: Chief Complaint Patient presents with New Patient back pain Leg Pain HISTORY OF PRESENT ILLNESS: The patient is a 63 y.o. male with the complaint of back and l eft leg symptoms that began 4 months ago. He describes the symptoms starting after working in the [employer] back in September. He did not notice [...] still helping. He currently works for an [employer]. Patient does not have a primary care [...] has no apparent deficits with short or long winder tender memory. CRANIAL NERVES: II: Acuity is intact. [...] Intrinsics 5 5 Ulnar Intrinsics 5 5 Etl Data Architect Strength 5 5 Hip Flexion 5 5 [...] patient has significant L5-S1 spondylosis with near vqyb-fc-ceos articulation. The L5 pattern of radiculopathy is [...] and encroachment on the | | exiting A2twucw roots distal to their foramina. There is [...]
--- OUTSIDE RECORDS SUMMARY | ~2019-07-07 | XMS | Encounter Summary ---
Demographics + + + | Address | [address] | | | [place] [address] | + + + | Home Phone | | + + + | Preferred Language | Unknown | + + + | Marital Status | | + + + | Mormon Affiliation | Unknown | + + + | Race | Unknown | + + + | Ethnic Group | Unknown | + + + Author + + + | Author | [facility] | | | and [place] | + + + | Organization | [facility] | | | [...] | | | | | [place] [address] | | + + + + + Care Team Providers + +------+ + | Care Stock Preparer Name | Role | Phone | + +------+ + | Ermias Campo | PCP | | + +------+ + Reason for Visit + + + | Reason | Comments | + + + | Medication Refill | | + + + Encounter Details +--------+--------+ + + + | Date | Type | Department | Care Team | Description | +--------+--------+ + + + | 06/17/ | Refill | [facility] | Michael Carolina, | Medication Refill | | 2020 | | NEUROSURGERY [address] | PA-C [address] | | | | | [address] | [address] [place] | | | | | [place], [place] | [place] [address] | | | | | [address] | [phone] | | | | | [phone] | | | +--------+--------+ + + + Social History + +-------+ [...] radiculopathy | + + documented in this encounter"
--- OUTSIDE RECORDS SUMMARY | ~2019-07-07 | XMS | Encounter Summary ---
Demographics + + + | Address | [address] | | | [place] [address] | + + + | Home Phone | | + + + | Preferred Language | Unknown | + + + | Marital Status | | + + + | Mandaen Affiliation | Unknown | + + + | Race | Unknown | + + + | Ethnic Group | Unknown | + + + Author + + + | Author | [facility] | | | and [place] | + + + | Organization | [facility] | | | [...] Imelda Keller | ECON | [address] [facility] | | | | | [place] [address] | | + + + + + Care Team Providers + +------+ + | Care Prepper Name | Role | Phone | + [...] | Lumbar | [place], | [address] | | | | | radiculopath | Jose Luis Pisano MD | [place], | | | | | y | [address] | [place] | | | | | Procedures | [place] | [address] | | | | | [place] INJECT | [place], [place] | Phone: | | | | | ANES/STEROID | [address] | [phone] | | | | | FORAMEN | Phone: | Fax: | | | | | LUMBAR/SACRA | [phone] | [phone] | | | | | [address] | Fax: | | | | | | [address] | [phone] | | | | | | [place] | | | | | | | [...] + + | 03/20/ | Hospital | [facility] | Jose Luis Wolff | Lumbar radiculopathy | | 2020 | Encounter | MED CTR XRAY [address] | T, [address] | | | | | [place] | [place] | | | | | [place] [address] | [address] | | | | | [phone] | | | | | | | [employer] | | | | | | [...] 12:53 | | | | | ONCE, [facility] 03/20/19 at 1245, For 1 | | [...] | | (Comment | | Intradermal, ONCE, [facility] 03/20/19 at | | PM PST | | | ) | | 1245, For 1 dose | | | | | | + +-------+ +-------+---+ + +---+---+ | | | +---+---+ documented in this encounter"
--- OUTSIDE RECORDS SUMMARY | ~2019-07-07 | XMS | Encounter Summary ---
Demographics + + + | Address | [address] | | | [place] [address] | + + + | Home Phone | | + + + | Preferred Language | Unknown | + + + | Marital Status | | + + + | Sabianist Affiliation | Unknown | + + + | Race | Unknown | + + + | Ethnic Group | Unknown | + + + Author + + + | Author | [facility] | | | and [place] | + + + | Organization | [facility] | | | [...] | | | | | [place] [address] | | + + + + + Care Team Providers + +------+ + | Care Packing Tractor Machine Operator Name | Role | Phone | [...] | | | [address] [place] | [place] [address] | | | | | [place] [address] | | | | | | [phone] | | | +--------+ + + + [...]
--- OUTSIDE RECORDS SUMMARY | ~2019-07-07 | XMS | Encounter Summary ---
Demographics + + + | Address | [address] | | | [place] [address] | + + + | Home Phone | | + + + | Preferred Language | Unknown | + + + | Marital Status | | + + + | Episcopal Affiliation | Unknown | + + + [...] | | | | | [place] [address] | | + + + + + Care Team Providers + +------+ + | Care Lead Programmer Name | Role | Phone | + [...] Lumbar | Michael Izaguirre, | [address] | | | | | spondylosis | PA-C [address] | [place], | | | | | Flat back | [address] | [place] | | | | | syndrome | [address] | [address] | | | | | Low back | [place], | Phone: | | | | | pain | [place] [address] | [phone] | | | | | potentially | Phone: | Fax: | | | | | associated | [phone] | [phone] | | | | | with | Fax: | | | | | | radiculopath | [phone] | | | | | | y [...] + + | 02/07/ | Hospital | [facility] | Duy Huerta | Lumbar spondylosis; | | 2019 | Encounter | [facility] | MD Jose Roberto [address] | Flat back syndrome; | | | | [address] | [address] [place] | Low back pain | | | | [place], [place] | [place] [address] | potentially | | | | [address] | [phone] | associated with | | | | [phone] | | radiculopathy | +--------+ + + [...] You can't be awakened Date Last Reviewed: 12/07/201519991307-9975 [employer]. [address] [place] [address], [place] [address]. All righ ts reserved. This information is [...] and encroachment on the | | exiting X1updxl roots distal to their foramina. There is [...]
--- OUTSIDE RECORDS SUMMARY | ~2019-07-07 | XMS | Encounter Summary ---
Demographics + + + | Address | [address] | | | [place] [address] | + + + | Home Phone | | + + + | Preferred Language | Unknown | + + + | Marital Status | | + + + | Catholic Affiliation | Unknown | + + + | Race | Unknown | + + + | Ethnic Group | Unknown | + + + Author + + + | Author | [facility] | | | and [place] | + + + | Organization | [facility] | | | [...] | | | | | [place] [address] | | + + + + + Care Team Providers + +------+ + | Care Territory Manager General Sales Name | Role | Phone | + [...] [address] | | | | | [place], [place] | [place] [address] | | | | | [address] | [phone] | | | | | [phone] | | | +--------+--------+ + + + [...]
--- OUTSIDE RECORDS SUMMARY | ~2019-07-07 | XMS | Encounter Summary ---
Demographics + + + | Address | [address] | | | [place] [address] | + + + | Home Phone [...] | | | | | [place] [address] | | + + + + + Care Team Providers + +------+ + | Care Warehouse Forklift Operator Name | Role | Phone | [...] [place] | [facility] | | | | [place], [place] | [place] [address] | instructions. | | | | [address] | [phone] | Ermias Campo in | | | | [phone] | | Michael. ) | +--------+ + [...]
--- OUTSIDE RECORDS SUMMARY | ~2019-07-07 | XMS | Encounter Summary ---
Demographics + + + | Address | [address] | | | [place] [address] | + + + | Home Phone [...] | | | | | [place] [address] | | + + + + + Care Team Providers + +------+ + | Care Cardboard Inserter Name | Role | Phone | + [...] | | | | | [address] | [place] | | | | | [place] | [address] | | | | | [address] | | | | | | [phone] | | | +--------+ + + + [...] by | | taya | MACHELLE); Hand; [id number] | Stormy Keita RN | Renetta Estrada, | | IV | catheter system; 20 gauge, 1 02/22 | | RELEASE AND TECHNICAL RECORDS CLERK | | | in length; intradermal injection, [...]
[~2019-07-07 06:53] MED LIST: NEXIUM20 MG PO; NORCO 7.5-3251 EACH PO
[2019-07-07] MEDS ORDERED: LISINOPRIL10 MG PO (07:01)
[2019-07-07] MEDS ORDERED: GABAPENTIN300 MG PO (07:01)
--- NOTE | 2019-07-07 10:24 | NUR ---
07/07/19 1024 Sheets,Nancy 1017 PT ARRIVED TO PACU ON 6L VIA MASK, PT REACTIVE TO TACTILE STIMULI VSS. RESP EVEN AND UNLABORED WITH SMALL AMOUNT OF SNORING. 1019 PT COUGHING AND HOB INCREASED, RN REORIENTING PT TO PACU. PT FALLS BACK TO SLEEP.
--- NOTE | 2019-07-07 10:57 | NUR ---
PT IS BACK TO DS FROM PACU. HE IS SLEEPY, DOESN'T OPEN EYES TO TALK TO YOU. HE IS GIVEN ICE WATER. CALL LIGHT WITHIN REACH. NO ADDITIONAL NEEDS
--- NOTE | 2019-07-07 12:06 | NUR ---
EDMUNDO 1150: PT IS ASSITED UP OOB TO THE BATHROOM. HE AMBULATES HIMSELF BACK TO HIS ROOM, HE WOULD LIKE TO GO HOME AT THIS TIME. HE IS CALLING HIS RIDE HOME AND IS EDUCATED ON HOW TO BEST DRESS HIMSELF AND TO OPEN HIS CURTAIN WHEN READY.
--- NOTE | 2019-07-07 12:17 | NUR ---
PT DID NOT GET FULLY DRESSED. HE CALLS HIS RIDE AGAIN.
--- NOTE | 2019-07-07 12:21 | NUR ---
PT IS GIVEN VERBAL DC INSTRUCTIONS, HE VERBALIZES UNDERSTANDING.
--- NOTE | 2019-07-07 12:37 | EKG ---
[facility] [address] [place], [place] [address] Signed Normal sinus rhythm Normal ECG No previous ECGs available Confirmed by ULISSES MEZA DO ([id number]) on 07/07/2019 12:37:47 PM Electronically Signed By: ULISSES MEZA DO 07/07/19 1237 PATIENT NAME: HARRY GOTTLIEB Electrocardiogram DATE OF : 57 PHYSICIAN: ULISSES MEZA DO REPORT #: [id number] REPORT IS CONFIDENTIAL AND NOT TO BE RELEASED WITHOUT AUTHORIZATION
--- NOTE | 2019-07-08 05:49 | OR ---
[facility] [address] [place], [place] [address] Signed DATE OF OPERATION: 07/07/2019 SURGEON: Jesus Smalls MD PREOPERATIVE DIAGNOSES: 1. Esophageal foreign body (rib meat). 2. Gastroesophageal reflux disease. POSTOPERATIVE DIAGNOSES: 1. Esophageal foreign body (rib meat). 2. Small hiatal hernia. 3. Mild diffuse gastritis. PROCEDURES: Esophagogastroduodenoscopy with CLOtest and biopsies of the antrum as well as foreign body removal. ESTIMATED BLOOD LOSS: None. INDICATIONS: Rafael is a 64-year-old gentleman, who apparently had a piece of meat get stuck at least 7-10 years ago. Last night, he was eating red meat. He felt it to get stuck in the distal esophagus. After 12 hours, it had not passed. He came to the emergency room this morning. Glucagon was given and that did not help. Therefore, I was asked to see him urgently in the emergency room as a general surgeon on-call. His Imelda happens to be a registered nurse. Rafael reminded me I have taken care of Imelda in the past. I reviewed with Rafael the upper endoscopy. He understands the nature of that test along with its risks including, but not limited to gas bloating, crampy abdominal pain, bleeding, perforation requiring surgery, and missed diagnosis. He also understands the need for sedation. In this situation, we would like to protect the airway. Consequently, we have an anesthesia provider help us with endotracheal tube intubation and airway control. He had expressed understanding and wished to proceed. DESCRIPTION OF PROCEDURE: Rafael was taken into our endoscopy suite and placed in the supine semi-recumbent position. He was placed under general endotracheal tube anesthesia. The adult gastroscope was introduced and advanced under direct visualization of the camera down into the distal esophagus at 40 cm. We could easily see the meat. We took a couple of pieces of it. We gently pushed it and went right through the GE junction and into the Electronically Signed By: JESUS SMALLS MD 07/08/19 0549 PATIENT NAME: RAFAEL GOTTLIEB OPERATIVE REPORT DATE OF : 57 REPORT #: [id number] PHYSICIAN: JESUS SMALLS MD PCP: SHANNAN REEVES MD REPORT IS CONFIDENTIAL AND NOT TO BE RELEASED WITHOUT AUTHORIZATION [facility] [address] [place], [place] [address] Signed stomach itself. The scope was then advanced all the way out into the third portion of the duodenum. The duodenum and pyloric channel were unremarkable. The stomach showed diffuse mild erythematous changes consistent with mild diffuse gastritis. I went and took a biopsy out of the antrum for pathologic review as well as CLOtest. Upon retroflexion of scope, we can see he does have just a small hiatal hernia. We could see the meat in the fundus. The scope was withdrawn up through the GE junction, which was compliant without stricture. He has the typical irritation of granulation tissue around the GE junction associated with meat impactions. No Segura's mucosa. The distal, middle, and upper esophagus were unremarkable. After this, the gas was suctioned out, the gastroscope removed. Rafael tolerated the procedure quite well. RECOMMENDATIONS: I will see Rafael back in my office in 7 to 14 days to review his results. We might consider a barium swallow to evaluate for stricture, hiatal hernia, and his motility. Jesus Smalls MD [facility]/MODL /[id number] cc: MD Jesus Jerome MD Copies: SHANNAN REEVES DMD, ANDREW L MD ~ Electronically Signed By: JESUS SMALLS MD 07/08/19 0549 PATIENT NAME: RAFAEL GOTTLIEB OPERATIVE REPORT DATE OF : 57 REPORT #: [id number] PHYSICIAN: JESUS SMALLS MD PCP: SHANNAN REEVES MD REPORT IS CONFIDENTIAL AND NOT TO BE RELEASED WITHOUT AUTHORIZATION
--- NOTE | 2019-07-08 05:49 | CONS ---
[facility] [address] [place], [place] [address] Signed DATE OF CONSULTATION: 07/07/2019 CHIEF COMPLAINT: Esophageal foreign body. HISTORY OF PRESENT ILLNESS: Rafael is a 64-year-old gentleman, who was eating ribs last night and felt one get stuck in his distal esophagus. He has been waiting for it to pass without success. He finally came to emergency room this morning. He said it has been about 12 hours. I gave him some glucagon and he had quite a bit of retching and so forth. He tried to drink some water and it appears that he still has the food stuck in his distal esophagus. He reminded me today that I have taken care of his in the past. He said he went through this quite a few years ago. He cannot remember who helped him at that time. He said he does have acid reflux, but he only uses Nexium every couple of weeks or so. PAST MEDICAL HISTORY: Esophageal foreign body, gastroesophageal reflux disease, hypertension, lumbar disk with radicular nerve pain. PAST SURGICAL HISTORY: EGD with foreign body removal and appendectomy. SOCIAL HISTORY: He does not smoke, but he has a drink every day. Dr. Shannan Reeves is primary care provider. He is to Imelda. They have four children together. He works for [employer]. He prefers the [employer]. FAMILY HISTORY: Mom had diabetes and of old age. Dad of old age. REVIEW OF SYSTEMS: He had 10 systems reviewed and no other new issues. Specifically, no metal in the body. ALLERGIES: Penicillin. MEDICATIONS: Gabapentin, lisinopril, and Nexium p.r.n. PHYSICAL EXAMINATION: VITAL SIGNS: His blood pressure is 174/80, heart rate 67, respiratory rate 16, temperature is 97.6. He is 99% on room air. He is 6 feet 4 inches, 117 kg. Electronically Signed By: JESUS SMALLS MD 07/08/19 0549 PATIENT NAME: RAFAEL GOTTLIEB CONSULTATION DATE OF : 57 REPORT #: [id number] PHYSICIAN: JESUS SMALLS MD PCP: SHANNAN REEVES MD REPORT IS CONFIDENTIAL AND NOT TO BE RELEASED WITHOUT AUTHORIZATION [facility] [address] [place] [address] Signed GENERAL: West is a 64-year-old gentleman sitting on the edge of his ER bed. He has no shortness of breath or increased work of breathing. He talks in full sentences. He is very cooperative and a good historian. LUNGS: Clear to auscultation bilaterally. HEART: Regular rate and rhythm. ABDOMEN: Flat. While I was in the room, he did control his saliva well, but we gave him some water and immediately choked that back up. LABORATORY DATA: Pending. EKG pending. ASSESSMENT AND PLAN: West is a 64-year-old gentleman, who has a piece of steak stuck in his distal esophagus. We have called in the crew and we are going to get him over to the endoscopy suite so we can remove this foreign body for him. Generally, these patients all go home afterwards. I will see him in the office a week or two later to review things with him. We will see if we can get an idea of the size of his hiatal hernia as well. We will review that in more detail in the office for him. I had reviewed with West the nature of an upper endoscopy. He understands there is risk including, but not limited to gas bloating, crampy abdominal pain, bleeding, perforation requiring surgery, and missed diagnosis. He has expressed understanding, would like to proceed. Jesus Smalls MD [facility]/MODL /[id number] cc: MD Jesus Jerome MD Copies: SHANNAN REEVES DMD, ANDREW L MD ~ Electronically Signed By: JESUS SMALLS MD 07/08/19 0549 PATIENT NAME: RAFAEL GOTTLIEB CONSULTATION DATE OF : 57 REPORT #: [id number] PHYSICIAN: JESUS SMALLS MD PCP: SHANNAN REEVES MD REPORT IS CONFIDENTIAL AND NOT TO BE RELEASED WITHOUT AUTHORIZATION
--- NOTE | 2019-07-09 12:36 | PATH ---
[facility] [address] [place] [place] [address] Signed SPECIMEN(S): A ANTRUM/PYLORUS SPECIMEN SOURCE: A. ANTRUM/PYLORUS CLINICAL HISTORY: Preop: Esophageal foreign body. Postop: Mild gastritis, small hiatal hernia. MICROSCOPIC DESCRIPTION: Histologic sections of all submitted blocks are examined by light microscopy. These findings, together with the gross examination, support the pathologic diagnosis. FINAL PATHOLOGIC DIAGNOSIS: Stomach, antrum, biopsy: - Antral mucosa with mild chronic, inactive gastritis. - Negative for Helicobacter organisms on HE stain. - Fragments of skeletal muscle. - Negative for dysplasia or malignancy. - See Comment. COMMENT: The history of esophageal foreign body (dietary meat) within the esophagus is noted. The skeletal muscle present in the biopsied tissue is favored to represent the meat present in the esophagus. Clinical correlation required. NAL:cml:C2NR GROSS DESCRIPTION: The specimen, labeled "KN, 1," and designated on the requisition "antrum/pylorus," is received in formalin and consists of one parisi soft tissue fragment that measures 0.3 cm in greatest dimension. The specimen is entirely submitted in cassette (A1). AT (under the direct supervision of a pathologist) The Gross Description was prepared using a voice recognition system. The report was reviewed for accuracy; however, sound-alike word errors, addition and/or deletions may occur. If there is any question about this report, please contact Client Services. PERFORMING LABORATORY: The technical component was performed by [facility], [address] [place] [address] (Scrap Breaker: Shanae Andrade MD; CLIA# [id number]). PATIENT NAME: HARRY GOTTLIEB PATHOLOGY DATE OF : 57 REPORT #: [id number] PHYSICIAN: KEERTHI PATHOLOGY PCP: SHANNAN REEVES MD REPORT IS CONFIDENTIAL AND NOT TO BE RELEASED WITHOUT AUTHORIZATION [facility] [address] [place], [place] [address] Signed Professional interpretation was performed by [facility], [address] [place] [address] (CLIA# [id number]). Diagnostician: Elinor Maya MD Pathologist Electronically Signed 07/09/2019 Copies: ~ PATIENT NAME: HARRY GOTTLIEB PATHOLOGY DATE OF : 57 REPORT #: [id number] PHYSICIAN: KEERTHI PATHOLOGY PCP: SHANNAN REEVES MD REPORT IS CONFIDENTIAL AND NOT TO BE RELEASED WITHOUT AUTHORIZATION
== END 2019-07-07 12:30 | disposition home or self-care (01) ==
LOC: ED 06:53 → DS 08:28
PROVIDERS: Colon & Rectal Surgery
PROC: 0DC38ZZ Extirpation of Matter from Lower Esophagus, Via Natural or Artificial Opening Endoscopic (ICD-10-PCS; 2019-07-07)
PROC: 0DB78ZX Excision of Stomach, Pylorus, Via Natural or Artificial Opening Endoscopic, Diagnostic (ICD-10-PCS; principal; 2019-07-07 09:30)
DX: T18.128A Food in esophagus causing other injury, initial encounter (principal); K29.50 Unspecified chronic gastritis without bleeding; K21.9 Gastro-esophageal reflux disease without esophagitis; K44.9 Diaphragmatic hernia without obstruction or gangrene; I10 Essential (primary) hypertension; Z88.0 Allergy status to penicillin; Z79.899 Other long term (current) drug therapy
CPT/HCPCS: 80053; 85025; 86677; 93005; 93010; 96361; 96374; 96375; 99285-25; J0330; J1610; J2001; J2405; J2550; J2704; J7030

== ENCOUNTER 2021-05-09 13:04 | Observation (INO) | payer BC ==
[~2021-05-09] VITALS: Ht 193 cm; Wt 117.0 kg
[~2021-05-09 13:04] MED LIST changes: +GABAPENTIN300 MG PO; +LISINOPRIL10 MG PO
--- NOTE | 2021-05-09 15:45 | NUR ---
PT TO FLOOR GISELLE WOODS. PT AMBULATED IN TO RESTROOM TO CHANGE INTO GOWN AND HAVE BM. TOLERATED WELL. DENIES PAIN. ADMISSION COMPLETE. VS STABLE. STATES BREATHING HAS NOT BEEN AFFECTED.
--- NOTE | 2021-05-09 16:25 | NUR ---
PATIENT TO SURGERY, VIA GURNEY, WITH MAMI CARTY.
--- NOTE | 2021-05-09 17:29 | NUR ---
05/09/21 172 [address] 1723- PT ARRIVES TO PACU NONAROUSABLE TO STIMULI WITH AN OPA IN PLACE. RESP EVEN AND UNLABORED. OXYGEN SAT MID 90'S ON 6L VIA MASK. PT COUGHING PERIODICALLY. 172- OPA REMOVED. PT REMAINS COUGHING PERIODICALLY. 172- PT MORE AROUSABLE AND ABLE TO ANSWER QUESTIONS. PT REPORTS NO PAIN OR NAUSEA. RESP EVEN AND UNLABORED. OXYGEN SAT HIGH 90'S TO 100% ON 6L VIA MASK. OXYGEN TITRATED OFF.
--- NOTE | 2021-05-09 17:53 | NUR ---
PT TO FLOOR WITH MACHELLE BOWLING. PT AWAKE AND TALKATIVE. PT AMBULATED TO BED WO DIFFICULTY. VS STABLE WITH BP SLIGHTLY ELEVATED. STATES HE HASN'T BEEN TAKING HIS MEDICATION, HASN'T FILLED THE PRESCRIPTION BUT STATES HE CAN AFFORD TO. GIVEN HIS CELL PHONE. OFFERED ICE WATER AND JELLO.
--- NOTE | 2021-05-09 18:30 | NUR ---
PATIENT UP TO BATHROOM AND BACK TO BED, IND. CALL LIGHT IN REACH. NO FURTHER NEEDS AT THIS TIME.
--- NOTE | 2021-05-09 19:07 | CONS ---
[facility] [address] [place], [place] [address] Signed DATE OF CONSULTATION: 05/09/2021 CHIEF COMPLAINT: Esophageal foreign body. HISTORY OF PRESENT ILLNESS: Rafael is a 66-year-old gentleman, I actually know from a few years ago when he came with the exact same issue. He was eating some steak last night around 7 o'clock in the evening. He felt the steak get stuck. He said he has been spitting up all night and all day at work. He is not able to drink or getting this stay down. He finally realized it was not going to pass. So, he came to emergency room for evaluation. I was asked to see Rafael here in the emergency room with respect to the above. PAST MEDICAL HISTORY: Gastroesophageal reflux disease, hypertension, and neuropathy. PAST SURGICAL HISTORY: Appendectomy, upper endoscopy with foreign body removal, and colonoscopy. SOCIAL HISTORY: He does not smoke. He usually has about three beers a day. He is to his , Imelda, at [phone]. He has three children. He helps repair RVs by local airport. He prefers the [facility]. Dr. Shannan Reeves is his primary care provider. FAMILY HISTORY: Mom and dad had diabetes. REVIEW OF SYSTEMS: He had 10 systems reviewed and said nothing really new since I have seen him last. ALLERGIES: Penicillin. MEDICATIONS: Lisinopril, although he could not take it this morning because he ran out. PHYSICAL EXAMINATION: VITAL SIGNS: Blood pressure 166/95, heart rate 76, respiratory rate 18, and temperature is 98.6. He is 98% on room air. He is 117 kg. GENERAL: Rafael is a 66-year-old gentleman, lying supine semi-recumbent in his ER bed watching TV. He is alert, awake, and interactive. He has no obstruction airway and is able to talk in full sentences. LUNGS: Clear to auscultation bilaterally. Electronically Signed By: JESUS SMALLS MD 05/09/21 1907 PATIENT NAME: RAFAEL GOTTLIEB CONSULTATION DATE OF : 57 REPORT #: [id number] PHYSICIAN: JESUS SMALLS MD PCP: SHANNAN REEVES MD REPORT IS CONFIDENTIAL AND NOT TO BE RELEASED WITHOUT AUTHORIZATION [facility] [address] [place], [place] [address] Signed HEART: Regular rate and rhythm without murmurs. ABDOMEN: Moderately protuberant. LABORATORY DATA: Pending. X-rays, none. ASSESSMENT/PLAN: Rafael is a 66-year-old gentleman, who presents with esophageal foreign body, namely steak. He has been through this process before and he is quite familiar with this. We reviewed the nature of an upper endoscopy along with the risks including, but not limited to gas, bloating, crampy abdominal pain, bleeding, perforation requiring surgery, and missed diagnosis. He understands this requires monitored anesthesia care to help with airway protection. More likely, he will get to go home later. He has expressed understanding, would like to proceed. Jesus Smalls MD ALB/MODL /[id number] cc: MD Shannan Galvan MD Copies: JESUS SMALLS MD, ROBERT D DMD ~ Electronically Signed By: JESUS SMALLS MD 05/09/21 1907 PATIENT NAME: RAFAEL GOTTLIEB CONSULTATION DATE OF : 57 REPORT #: [id number] PHYSICIAN: JESUS SMALLS MD PCP: SHANNAN REEVES MD REPORT IS CONFIDENTIAL AND NOT TO BE RELEASED WITHOUT AUTHORIZATION
--- NOTE | 2021-05-10 05:53 | OR ---
[facility] [address] [place], [place] [address] Signed DATE OF OPERATION: 05/09/2021 SURGEON: Jesus Smalls MD PREOPERATIVE DIAGNOSIS: Esophageal foreign body (steak). POSTOPERATIVE DIAGNOSES: 1. Esophageal foreign body (steak). 2. Mild distal gastritis. 3. Minimal distal esophageal stricture. PROCEDURES: EGD with SURINDER test and removal of foreign body. ESTIMATED BLOOD LOSS: None. INDICATIONS: Rafael is a 66-year-old gentleman, whom I met a number of years ago in the same situation. Once again, it was steak. He had to undergo upper endoscopy with removal of the steak at that time. He says he does have a history of acid reflux, although he does not take anything for it. Last night, he was eating some steak around 7 o'clock and he realized it was stuck. He even went to work today, but finally realized it was not going to pass, so he came to the emergency room for evaluation. I had met with him in the emergency room. We reviewed the above findings. We reviewed upper endoscopy together. He understands there is risk including, but not limited to gas, bloating, crampy abdominal pain, bleeding, perforation requiring surgery, and missed diagnosis. He also understands the need for monitored anesthesia care to help protect his airway. I also encouraged him to come see me in the office afterwards. After this inflammatory process slows down, he needs a barium swallow and possibly repeat upper endoscopy with dilation. He understands the above. He expressed understanding and wishes to proceed. PROCEDURE NOTE: Rafael was taken into our endoscopy suite and placed in a supine semi-recumbent position. He was placed under general endotracheal tube anesthesia. We did not utilize a bite block in his case. His lips were well lubricated. The adult gastroscope was easily passed down the esophagus and we suctioned out a column of saliva. We found the steak in the distal esophagus and we could see it was not particularly wedged into the esophagus. It took just a little bit of gentle pressure and we were able to push the Electronically Signed By: JESUS SMALLS MD 05/10/21 0553 PATIENT NAME: RAFAEL GOTTLIEB OPERATIVE REPORT DATE OF : 57 REPORT #: [id number] PHYSICIAN: JESUS SMALLS MD PCP: SHANNAN REEVES MD REPORT IS CONFIDENTIAL AND NOT TO BE RELEASED WITHOUT AUTHORIZATION [facility] [address] [place], [place] [address] Signed piece of steak through and into the stomach. We passed the scope out into the duodenum, which was unremarkable along with the pyloric channel. He did have some mild inflammatory changes in the distal esophagus. We went and took a biopsy for SURINDER test on this occasion. Upon retroflexion of scope, I cannot really see the cardia very well because of the fluid in the meat. The scope was then pulled up through the area of GE junction and we suctioned out quite a bit of that fluid. Even it was hard to tell if he had a hiatal hernia. If he does, it would be quite small. Of course, he has some acute on chronic inflammatory changes around the Z-line. No obvious tumor. His middle and upper esophagus were unremarkable. After this, the gas was suctioned out and the gastroscope removed. Rafael tolerated the procedure quite well. RECOMMENDATIONS: Rafael will be discharged home later tonight when he is awake and ambulating. He should follow up in my office in the weeks ahead and we can plan on a barium swallow and possibly repeat upper endoscopy with dilation. Jesus Smalls MD ALB/MODL /[id number] cc: Shannan Reeves MD Patient Chart Jesus Smalls MD Copies: SHANNAN REEEVS DMD, ANDREW L MD ~ Electronically Signed By: JESUS SMALLS MD 05/10/21 0553 PATIENT NAME: RAFAEL GOTTLIEB OPERATIVE REPORT DATE OF : 57 REPORT #: [id number] PHYSICIAN: JESUS SMALLS MD PCP: SHANNAN REEVES MD REPORT IS CONFIDENTIAL AND NOT TO BE RELEASED WITHOUT AUTHORIZATION
--- NOTE | 2021-05-10 12:37 | EKG ---
[facility] [address] [place] [address] Signed Normal sinus rhythm with sinus arrhythmia Normal ECG When compared with ECG of 07-JUL-2019 08:13, No significant change was found Confirmed by ELISOE GREGORY MD ([id number]) on 05/10/2021 12:37:09 PM Electronically Signed By: ELISEO GREGORY MD 05/10/21 1237 PATIENT NAME: BULLHARRY LEON Electrocardiogram DATE OF : 57 PHYSICIAN: ELISEO GREGORY MD REPORT #: [id number] REPORT IS CONFIDENTIAL AND NOT TO BE RELEASED WITHOUT AUTHORIZATION
== END 2021-05-09 18:55 | disposition home or self-care (01) ==
LOC: ED 13:04 → MS 13:06
PROVIDERS: ADMIT Colon & Rectal Surgery; ATTEND Colon & Rectal Surgery
PROC: 0DB68ZX Excision of Stomach, Via Natural or Artificial Opening Endoscopic, Diagnostic (ICD-10-PCS; 2021-05-09)
PROC: 0DC38ZZ Extirpation of Matter from Lower Esophagus, Via Natural or Artificial Opening Endoscopic (ICD-10-PCS; principal; 2021-05-09 16:00)
DX: T18.128A Food in esophagus causing other injury, initial encounter (principal); K22.2 Esophageal obstruction; K29.70 Gastritis, unspecified, without bleeding; I10 Essential (primary) hypertension; Z88.0 Allergy status to penicillin; Z20.822 Contact with and (suspected) exposure to COVID-19
CPT/HCPCS: 00731; 36415; 80048; 85025; 87077; 93005; 93010; 96374; 99284-25; C9803; G0378; J0330; J2405; J2704; J7030; U0003

== ENCOUNTER 2025-01-28 07:46 | Emergency (ER) | payer MEDICARE, OTHER ==
[~2025-01-28] VITALS: Ht 193 cm; Wt 118.0 kg
[2025-01-28] MEDS ORDERED: OMEPRAZOLE20 MG PO (07:57)
[2025-01-28] MEDS ORDERED: TADALAFIL5 M1 PO (07:57)
[2025-01-28] MEDS ORDERED: ROSUVASTATIN CA20 MG (07:57)
[2025-01-28 09:00] VITALS: BP 144/75
== END 2025-01-28 09:00 | disposition home or self-care (01) ==
LOC: ED 07:46
DX: S86.311A Strain of muscle(s) and tendon(s) of peroneal muscle group at lower leg level, right leg, initial encounter (principal); W18.30XA Fall on same level, unspecified, initial encounter; I10 Essential (primary) hypertension; Z88.0 Allergy status to penicillin; Z79.899 Other long term (current) drug therapy
CPT/HCPCS: 73610; 99283